=== PATIENT | female | born 1960 | race Caucasian/White ===

== ENCOUNTER 2016-07-09 02:55 | Inpatient (IN) | payer MEDICARE ==
[2016-07-09] MEDS ORDERED: IPRATROPIUM/ALBUTEROL 0.5-2.5 MG/3 ML AMPUL NEB ONE (02:57)
[2016-07-09] MEDS ORDERED: ALBUTEROL SULFATE 0.083% NEB 2.5 MG/3 ML AMPUL NEB ONE (02:57)
[2016-07-09] MEDS ORDERED: NORMAL SALINE 1000 ML 1,000 ML IV PRN (02:57)
--- NOTE | 2016-07-09 03:04 | ER Document Report ---
ED Respiratory Problem - General Stated Complaint: RESPIRATORY DISTRESS Time seen by provider: 02:59 Mode of Arrival: Medic Information source: Emergency Med Personnel - [facility] Patient complains to provider of: COPD, Cough, Short of breath Onset: Just prior to arrival Duration: Worse/persistent Short of Breath: Severe At home treatment: Bronchodilators EMS treatments: Bronchodilators, Solumedrol Notes: Patient is a 56-year-old female presenting to the emergency room via EMS for respiratory distress, she was awakened from her sleep with difficulty breathing and wheezing according to EMS, she tried to use bronchodilators at home with no success, when EMS arrived she was in severe respiratory distress, they attempted to give more bronchodilators, however she became apneic and required intubation feel, in route she received 2 additional bronchodilator treatments, 2 g of magnesium and RSI medications, upon arrival she is intubated with breath sounds bilaterally, diffuse wheezing - Related Data Allergies/Adverse Reactions: peanut Allergy (Verified 07/09/16 03:48) Home Medications: Current Home Medications Albuterol Sulfate [Proair HFA] 1 - 2 puff IH Q4 PRN 07/09/16 [History] Aspirin [Aspirin EC] 81 mg PO DAILY 07/09/16 [History] Atorvastatin Calcium 40 mg PO DAILY 07/09/16 [History] Budesonide/Formoterol Fumarate [Symbicort Hfa 80-4.5 Mcg Inhaler 6.9 gm] 1 puff IH BID 07/09/16 [History] Carvedilol [Coreg] 1 tab PO Q12 07/09/16 [History] Clonidine HCl 0.2 mg PO BID 07/09/16 [History] Clopidogrel Bisulfate [Clopidogrel] 75 mg PO DAILY 07/09/16 [History] Furosemide 20 mg PO DAILY 07/09/16 [History] Isosorbide Mononitrate [Isosorbide Mononitrate ER] 30 mg PO DAILY 07/09/16 [ History] Lisinopril 5 mg PO DAILY 07/09/16 [History] Lorazepam [Ativan 0.5 mg Tablet] 0.5 mg PO Q12 07/09/16 [History] Methadone HCl 5 mg PO BID PRN 07/09/16 [History] Omeprazole 20 mg PO DAILY 07/09/16 [History] Sertraline HCl 50 mg PO DAILY 07/09/16 [History] Past Medical History - General Information source: Emergency Med Personnel - Social History Smoking Status: Unknown if Ever Smoked Family History: Reviewed & Not Pertinent Review of Systems - Review of Systems -: Yes ROS unobtainable due to patient's medical condition Respiratory: See HPI Physical Exam - Vital signs Vitals: Pulse Ox 100 07/09/16 02:55 Interpretation: Normal - General In distress: Severe Notes: Intubated and sedated - Respiratory Respiratory status: Other - Intubated Chest status: Other - Healed midline sternotomy scar Breath sounds: Wheezing Chest palpation: Normal - Cardiovascular Rhythm: Regular Heart sounds: Normal auscultation - Abdominal Inspection: Healed incision - Healed scars in right upper quadrant and midline - Back Back: Normal - Extremities General upper extremity: Normal inspection General lower extremity: Normal inspection - Neurological Notes: Patient is intubated and sedated - Skin Skin Temperature: Warm Skin Moisture: Dry Skin Color: Normal Course - Re-evaluation Re-evalutation: 07/09/16 06:40 Patient was discussed with hospitalist who agrees to admit for further evaluation and treatment - Vital Signs Vital signs: Temp Pulse Resp BP Pulse Ox 98.9 F 14 164/85 H 100 07/09/16 06:20 07/09/16 06:20 07/09/16 06:20 07/09/16 06:20 - Laboratory Result Diagrams: 07/09/16 02:59 07/09/16 02:59 Laboratory results interpreted by me: 07/09/16 07/09/16 07/09/16 02:59 02:59 02:59 WBC 22.8 H Hgb 10.1 L Hct 32.7 L MCH 25.6 L MCHC 30.9 L RDW 16.5 H Seg Neuts % (Manual) 86 H Band Neutrophils % 2 L Lymphocytes % (Manual) 6 L Abs Neuts (Manual) 20.1 H Carbonic Acid ABG pH ABG pCO2 ABG pO2 ABG HCO3 ABG Total CO2 ABG O2 Saturation Sodium 146.5 H Chloride 108 H Glucose 126 H Magnesium 3.0 H Total Protein 6.1 L Albumin 3.1 L Urine Protein Urine Bilirubin Urine Ascorbic Acid 07/09/16 07/09/16 07/09/16 03:15 03:15 04:59 WBC Hgb Hct MCH MCHC RDW Seg Neuts % (Manual) Band Neutrophils % Lymphocytes % (Manual) Abs Neuts (Manual) Carbonic Acid 1.66 H 1.42 H ABG pH 7.30 L 7.34 L ABG pCO2 55.2 H 47.2 H ABG pO2 584.7 H 550.3 H ABG HCO3 26.3 H ABG Total CO2 28.0 H 26.3 H ABG O2 Saturation 99.9 H 99.9 H Sodium Chloride Glucose Magnesium Total Protein Albumin Urine Protein 100 H Urine Bilirubin SMALL H Urine Ascorbic Acid 20 H - Diagnostic Test Radiology reviewed: Image reviewed, Reports reviewed - EKG Interpretation by Me EKG shows normal: Sinus rhythm Rate: Normal Rhythm: NSR - Transfer of Care Care transferred to following provider: Dr. Stuart Critical Care Note - Critical Care Note Total time excluding time spent on procedures (mins): 40 Comments: Patient arrived to the emergency room intubated and sedated, requiring stabilization, vent management, sedation, discussions with family and eventual admission to the ICU Discharge - Discharge Clinical Impression: Respiratory failure requiring intubation COPD (chronic obstructive pulmonary disease) Qualifiers: COPD type: COPD with acute lower respiratory infection Qualified Code(s): J44.0 - Chronic obstructive pulmonary disease with acute lower respiratory infection Pneumonia Qualifiers: Pneumonia type: due to unspecified organism Laterality: right Lung location: upper lobe of lung Qualified Code(s): J18.1 - Lobar pneumonia, unspecified organism Condition: Critical Disposition: ADMITTED INPATIENT Admitting Provider: Hospitalist Unit Admitted: ICU
[2016-07-09] MEDS: PROPOFOL 100 ML IV PRN ×5 (03:07→19:55)
[2016-07-09 03:27] LABS: ALBUMIN 3.1 g/dL (3.5-5.0); ANION GAP 10 (5-19); ASPARTATE AMINO TRANSFERASE 19 U/L (14-36); BLOOD UREA NITROGEN 15 mg/dL (7-20); CALCIUM 8.5 mg/dL (8.4-10.2); CARBON DIOXIDE 29 mmol/L (22-30); CHLORIDE 108 mmol/L (98-107); CREATININE RESULT 0.69 mg/dL (0.52-1.25); GLUCOSE 126 mg/dL (75-110); POTASSIUM 4.6 mmol/L (3.6-5.0); SODIUM 146.5 mmol/L (137-145)
[2016-07-09 03:28] LABS: ALANINE AMINOTRANSFERASE 27 U/L (9-52); ALKALINE PHOSPHATASE 88 U/L (38-126); BILIRUBIN,TOTAL 0.4 mg/dL (0.2-1.3); CREATINE KINASE 40 U/L (30-135); TOTAL PROTEIN 6.1 g/dL (6.3-8.2)
[2016-07-09 03:34] LABS: ARTERIAL BLOOD BASE EXCESS -0.9 mmol/L; ARTERIAL BLOOD O2 SATURATION 99.9 % (94-98)
[2016-07-09 03:39] LABS: CREATINE KINASE MB 2.32 ng/mL (<4.55)
[2016-07-09 03:50] LABS: APPEARANCE,URINE SLIGHTLY-CLOUDY; BILIRUBIN,URINE SMALL (NEGATIVE); GLUCOSE, URINE NEGATIVE (NEGATIVE); KETONES,URINE NEGATIVE (NEGATIVE); LEUKOCYTE ESTERASE,URINE NEGATIVE (NEGATIVE); NITRITE,URINE NEGATIVE (NEGATIVE); PROTEIN,URINE 100 mg/dL (NEGATIVE); URINE SPECIFIC GRAVITY 1.028; UROBILINOGEN,URINE NEGATIVE mg/dL (<2.0)
[2016-07-09 03:54] LABS: TROPONIN I < 0.012 ng/mL
[2016-07-09 04:32] LABS: HEMATOCRIT 32.7 % (36.0-47.0); HEMOGLOBIN 10.1 g/dL (12.0-15.5); HGB HCT DIFFERENCE -2.4; MEAN CORPUSCULAR HEMOGLOBIN 25.6 pg (27.0-33.4); MEAN CORPUSCULAR HGB CONC 30.9 g/dL (32.0-36.0); MEAN CORPUSCULAR VOLUME 83 fl (80-97); RED BLOOD COUNT 3.94 10^6/uL (3.72-5.28); RED CELL DISTRIBUTION WIDTH 16.5 % (11.5-14.0); WHITE BLOOD COUNT 22.8 10^3/uL (4.0-10.5)
[2016-07-09] MEDS ORDERED: AZITHROMYCIN INJ 500 MG VIAL IV ONE (04:34)
[2016-07-09] MEDS ORDERED: CEFTRIAXONE RTU 1 GM/D5W 50 ML IV ONE (04:34)
[2016-07-09 04:36] LABS: BAND NEUTROPHILS % (MANUAL) 2 % (3-5); BASOPHILS % (MANUAL) 0 % (0-2); EOSINOPHILS % (MANUAL) 0 % (0-6); LYMPHOCYTES % (MANUAL) 6 % (13-45); TOTAL CELLS COUNTED 100
[2016-07-09 04:40] LABS: OVALOCYTES 1+; POIKILOCYTOSIS 1+; RBC MORPHOLOGY COMMENT NORMO-CYTIC/CHROMIC
[2016-07-09 05:32] LABS: ADD ON TESTING BLD IN LAB ACKNOWLEDGE
[2016-07-09 05:38] LABS: ARTERIAL BLOOD BASE EXCESS -1.3 mmol/L; ARTERIAL BLOOD O2 SATURATION 99.9 % (94-98)
[2016-07-09] MEDS ORDERED: ALBUTEROL SULFATE 0.083% NEB 2.5 MG/3 ML AMPUL NEB PRN (07:43)
[2016-07-09] MEDS ORDERED: ACETAMINOPHEN 650 MG SUPP.RECT PR PRN (07:52)
--- NOTE | 2016-07-09 07:59 | EKG REPORT ---
SEVERITY:- ABNORMAL ECG - SINUS RHYTHM BIATRIAL ABNORMALITIES : Confirmed by: Helio Ngo MD 09-Jul-2016 07:59:10
[2016-07-09] MEDS ORDERED: METHADONE HCL NG PRN (08:01)
[2016-07-09] MEDS ORDERED: GLUCAGON,HUMAN RECOMB 1 MG INJ IM PRN (08:31)
[2016-07-09] MEDS ORDERED: DEXTROSE 40% GEL 15 GM TUBE PO PRN ×2 (08:31)
[2016-07-09] MEDS ORDERED: DEXTROSE 50%-WATER 25 GM/50 ML DISP.SYRIN IV PRN ×2 (08:31)
[2016-07-09] MEDS ORDERED: NICOTINE 7 MG/24 HR PATCH.TD24 TD PRN (08:33)
--- NOTE | 2016-07-09 08:33 | PDOC H&P ---
History of Present Illness Admission Date/PCP: 07/09/16 05:12 [place], [place] Patient complains of: difficulty breathing History of Present Illness: CHARITY RAYMOND is a 56 year old female with underlying 24/7 2 L per nasal cannula home O2 dependent COPD, ongoing tobacco use, 1/2-1 pack of cigarettes per day, along with underlying coronary artery disease, having suffered 3-4 myocardial infarctions,, last episode November of last year, with heart catheterization at that time revealing no further intervention necessary, status post previous coronary arterial bypass graft, along with hyperlipidemia, who presents to the emergency room via EMS for evaluation and treatment of above complaint. Patient has been discussed with emergency room physician who evaluated the patient. Patient is intubated and sedated and is able to provide no history whatsoever in terms of acute or chronic events, review of systems, personal habits, family history, etc. Sister, who is patient's surrogate health care power of defense attorney, is present and is quite informative and helpful no old records available for review.. Sister states the patient is "sick all the time." Was last on antibiotics 2 weeks ago for respiratory tract infection. Uncertain exactly which medication. Has not been hospitalized in the last 3 months, but has gone to the emergency room more than one time during that time span.. No specific sick contacts. Up- to-date on flu and probably pneumonia vaccinations. No prior intubation. Early evening of the seventh, patient began having increasing respiratory distress and per her her usual routine, she took half milligram Ativan at that time. She suddenly awoke in the sales representative graphic art hours of admission in significant respiratory distress with wheezing. EMS arrived approximately 1:30 AM after patient called. Bronchodilators had been tried at home with no success. EMS tried more bronchodilators, but patient became apneic and required intubation in the field. Laboratory results are listed in [facility] and are reviewed. No old labs available for comparison. X-ray summary results are listed below, with full report(s) reviewed. . EKG reviewed. No prior EKG available for comparison. 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 Tobacco use as noted above. No alcohol or illicit drug use. Allergies/adverse reactions are listed in [facility] and are reviewed. Home medications are reviewed bottle review and discussion with sister and have been reconciled by nursing staff in [facility]. [facility] may not accurately reflect patient's true medications, dosages, and/or frequencies. Compliant with medications. No recent medication changes. REVIEW OF SYSTEMS: See history and present illness.No further information available this point in time. PHYSICAL EXAMINATION: 5 feet tall. 38.5 kg. BMI 16.6 kg/m. Blood pressure 168/85. Pulse 89 and regular. 100% saturation on SIMV volume control 65% FiO2 PEEP of 5 pressure support 10 rate of 14 tidal volume 500. Tidal volume is decreased. Quite frail thin chronically ill-appearing female who appears a fair number of years older than her stated age. Intubated and sedated. Does not respond to voice or basic requests. Female emergency room nursing executive Lindsay is present. Skin is warm and dry. No grossly obvious evidence of rash in areas of skin examined. No subcutaneous nodules palpated. ENT: Hearing can't be adequately evaluated due to her current status. Exam slightly limited by endotracheal tube with attaching straps. No Lee sign. Eyes: No scleral icterus. Pupils equal and reactive to light at 7 mm. [place] conjunctivae. No raccoon eyes. Neck is nontender to gentle palpation . Midline trachea. No palpable thyroid nodule mass enlargement or tenderness. Lymphatic: No palpable cervical or clavicular nodes. Psychiatric: Can't be adequately evaluated due to her current status. Lungs: Auscultation reveals equal breath sounds bilaterally. No use of accessory respiratory muscles. Not breathing over ventilator. Brief early expiratory wheezing bilaterally. Cardiovascular: Heart regular rate and rhythm, without gallop murmur or rub. No carotid or abdominal aortic bruits. No ankle or pedal edema. Faintly palpable dorsalis pedis pulses. Abdomen: soft, , nontender with positive bowel sounds. No upper abdominal mass or organomegaly is palpated.. Extremities: Feet are warm and dry. No calf tenderness to compression. No grossly obvious visual evidence of calf swelling. Gentle manipulation of lower extremities fails to reveal any obvious evidence of injury or instability to knees hips or ankles. Neurologic: Patellar reflexes absent. Absent Babinski. Light touch can't be evaluated due to her current status. Does not follow requests for hand bundle packer. Past Medical History Cardiac Medical History: Reports: Congestive Heart Failure - Uncertain if systolic and/or diastolic., Coronary Artery Disease, Myocardial Infarction, Hyperlipidema, Hypertension Denies: DVT, Pulmonary Embolism Pulmonary Medical History: Reports: Chronic Obstructive Pulmonary Disease (COPD) EENT Medical History: Reports: Eyes - Reading glasses Denies: Ears, Throat Neurological Medical History: Denies: Hemorrhagic CVA, Ischemic CVA, Seizures Endocrine Medical History: Denies: Diabetes Mellitus Type 1, Diabetes Mellitus Type 2, Hyperthyroidism, Hypothyroidism Renal/ Medical History: Reports: None GI Medical History: Reports: Gastroesophageal Reflux Disease Denies: Cirrhosis, Hepatitis, Peptic Ulcer Disease Musculoskeltal Medical History: Reports: Arthritis Skin Medical History: Reports: None Denies: Eczema, Psoriasis Psychiatric Medical History: Reports: Depression, General Anxiety Disorder, Tobacco Dependency Hematology: Reports: Other - Easy bruising. Infectious Medical History: Denies: Hepatitis B, Hepatitis C Past Surgical History Past Surgical History: Reports: Section - 2, Cholecystectomy, Coronary Artery Bypass Graft, Hysterectomy Social History Information Source: Relative, Emergency Med Personnel, [facility] Records Smoking Status: Current Every Day Smoker Frequency of Alcohol Use: None Drugs: None - Advance Directive Resuscitation Status: Full Code Surrogate healthcare decision maker:: Sister Family History Family History: Reviewed & Not Pertinent Parental Family History Reviewed: Yes Children Family History Reviewed: Yes Sibling(s) Family History Reviewed.: Yes Medication/Allergy Home Medications: Albuterol Sulfate [Proair HFA] 2 puff IH Q4HP PRN 07/09/16 Budesonide/Formoterol Fumarate [Symbicort HFA 160-4.5 mcg Inhaler 6 gm] 2 puff IH BID 07/09/16 Fluticasone Propionate [Flonase Nasal [place] 50 Mcg/[place] 16 gm] 1 spray NASL DAILY 07/09/16 Isosorbide Mononitrate [Isosorbide Mononitrate ER] 30 mg PO DAILY 07/09/16 RX: Atorvastatin Calcium [Lipitor 40 mg Tablet] 40 mg PO WSUPPER 07/09/16 RX: Carvedilol [Coreg 6.25 mg Tablet] 6.25 mg PO Q12 07/09/16 RX: Clonidine HCl [Catapres 0.2 mg Tablet] 0.2 mg PO Q12 07/09/16 RX: Clopidogrel Bisulfate [Plavix 75 mg Tablet] 75 mg PO DAILY 07/09/16 RX: Ipratropium/Albuterol Sulfate [Iprat-Albut 0.5-3(2.5) mg/3 ml] 3 ml NEB Q6HP PRN 07/09/16 RX: Lisinopril [Prinivil 5 mg Tablet] 5 mg PO Q12 07/09/16 RX: Lorazepam [Ativan 0.5 mg Tablet] 0.5 mg PO BIDP PRN 07/09/16 RX: Megestrol Acetate [Megace] 15.6 ml PO DAILY 07/09/16 RX: Methadone HCl 5 mg PO BIDP PRN 07/09/16 RX: Nitroglycerin [Nitrostat] 0.4 mg SL Q5MP PRN 07/09/16 RX: Omeprazole 20 mg PO DAILY 07/09/16 RX: Sertraline HCl [Zoloft 50 mg Tablet] 50 mg PO DAILY 07/09/16 Tiotropium [place] [Spiriva Handihaler 5 Cap/Kit (18 Mcg/Cap)] 1 puff IH DAILY 07/09/16 Allergies/Adverse Reactions: escitalopram [From Lexapro] Allergy (Verified 07/09/16 08:00) hydralazine Allergy (Verified 07/09/16 07:58) Physical Exam Vital Signs: Temp Pulse Resp BP Pulse Ox 98.9 F 14 164/85 H 100 07/09/16 06:20 07/09/16 06:20 07/09/16 06:20 07/09/16 06:20 Results Impressions: KUB X-Ray 07/09/16 00:00 IMPRESSION: NASOGASTRIC TUBE DESCRIBED. FURTHER ADVANCEMENT MAY BE NECESSARY. NO RADIOGRAPHIC EVIDENCE FOR ACUTE ABDOMINAL DISEASE. Chest X-Ray 07/09/16 02:57 IMPRESSION: SATISFACTORY PLACEMENT OF ENDOTRACHEAL TUBE. SUBTLE NODULAR OPACITY RIGHT UPPER LOBE MAY REPRESENT DEVELOPING PNEUMONIA. RECOMMEND FOLLOWUP RADIOGRAPHS 4 TO 6 WEEKS AND IF PERSISTS WOULD RECOMMEND CT EXAMINATION. Assessment & Plan - Diagnosis (1) Acute on chronic respiratory failure with hypoxia and hypercapnia Is this a current diagnosis for this admission?: YesPlan: Patient will be admitted under COPD exacerbation protocol. Incentive spirometry twice a day. Scheduled DuoNeb's. PRN albuterol nebs Solu-Medrol IV Pepcid for gastritis prophylaxis. Pulmonology consult. Antibiotics will consist of Zosyn along with intravenous Levaquin.. Patient is a full code. Knee high SCDs for DVT prophylaxis, along with subcutaneous heparin. Impression and plans were discussed with sister, who concurs. Time spent in evaluation and management of patient: 75 minutes. (2) COPD exacerbation Is this a current diagnosis for this admission?: Yes (3) Hypernatremia Is this a current diagnosis for this admission?: YesPlan: Appropriate IV fluid. Follow-up chemistry. (4) Respiratory failure requiring intubation Is this a current diagnosis for this admission?: Yes (5) Nodule of right lung Is this a current diagnosis for this admission?: YesPlan: Outpatient follow-up. (6) CAD (coronary artery disease), [place] coronary artery Qualifiers: [place] vs. transplanted heart: [place] heart Associated angina: without angina Qualified Code(s): I25.10 - Atherosclerotic heart disease of [place] coronary artery without angina pectoris Is this a current diagnosis for this admission?: YesPlan: Resume home medications as appropriate once these have been reviewed. (7) Dependence on continuous supplemental oxygen Is this a current diagnosis for this admission?: Yes (8) Tobacco dependency Is this a current diagnosis for this admission?: YesPlan: . When necessary Nicotine patch. - Inpatient Certification Based on my medical assessment, after consideration of the patient's comorbidities, presenting symptoms, or acuity I expect that the services needed warrant INPATIENT care.: Yes I certify that my determination is in accordance with my understanding of Medicare's requirements for reasonable and necessary INPATIENT services [42 CFR 412.3e].: Yes Medical Necessity: Need Close Monitoring Due to Risk of Patient Decompensation, Need For IV Fluids, Need For Continuous Telemetry Monitoring, Need for Nebulizer Therapy and Monitoring of Response, Need for IV Antibiotics, Risk of Diagnosis Which Will Require Inpatient Eval/Care/Monitoring Post Hospital Care: D/C or Transfer Summary
[2016-07-09] MEDS: IPRATROPIUM/ALBUTEROL 0.5-2.5 MG/3 ML AMPUL NEB SCH ×3 (08:46→19:45)
[2016-07-09] MEDS: PIPERACILLIN SODIUM/TAZOBACTAM 4.5 GM in NORMAL SALINE 100 ML IV SCH ×3 (09:51→21:29)
[2016-07-09] MEDS ORDERED: BUDESONIDE/FORMOTEROL 80-4.5 MCG 60 PUFF/6.9 GM MDI IH SCH (10:00)
[2016-07-09] MEDS: 1/2 NORMAL SALINE 1,000 ML IV PRN ×2 (10:04→21:31)
[2016-07-09] MEDS: LISINOPRIL 10 MG TABLET NG SCH (10:38)
[2016-07-09] MEDS: CLONIDINE HCL 0.2 MG TABLET NG SCH ×2 (10:40→21:28)
[2016-07-09] MEDS: FUROSEMIDE INJ/PF 20 MG/2 ML SDV IV SCH (10:40)
[2016-07-09] MEDS: CLOPIDOGREL BISULFATE 75 MG TABLET NG SCH (10:40)
[2016-07-09] MEDS: CARVEDILOL 6.25 MG TABLET NG SCH ×2 (10:40→21:29)
[2016-07-09] MEDS: FAMOTIDINE INJ/PF 20 MG/2 ML SDV IV SCH ×2 (10:41→21:29)
[2016-07-09] MEDS: HEPARIN SOD (PORCINE) 5,000 UNIT/ML 1 ML SYRINGE SUBCUT SCH ×2 (10:41→21:29)
[2016-07-09] MEDS: SERTRALINE HCL 50 MG TABLET NG SCH (10:41)
[2016-07-09] MEDS: ASPIRIN 300 MG SUPP, RECTAL PR SCH (10:41)
[2016-07-09] MEDS: LEVOFLOXACIN 750 MG/D5W RTU 150 ML IV SCH (10:42)
[2016-07-09] MEDS: METHYLPREDNISOLONE INJ 40 MG/1 ML SDV IV SCH ×2 (10:49→18:49)
[2016-07-09] MEDS: NITROGLYCERIN 2% OINTMENT 1 GM PACKET TP SCH ×2 (14:30→18:49)
--- NOTE | 2016-07-09 15:04 | PDOC PROGRESS REPORT ---
Subjective Progress Note for:: 07/09/16 Subjective:: Per H&P: "CHARITY RAYMOND is a 56 year old female with underlying 24 /7 2 L per nasal cannula home O2 dependent COPD, ongoing tobacco use, 1/2-1 pack of cigarettes per day, along with underlying coronary artery disease, having suffered 3-4 myocardial infarctions,, last episode November of last year, with heart catheterization at that time revealing no further intervention necessary, status post previous coronary arterial bypass graft, along with hyperlipidemia, who presents to the emergency room via EMS for evaluation and treatment of above complaint. Patient has been discussed with emergency room physician who evaluated the patient. Patient is intubated and sedated and is able to provide no history whatsoever in terms of acute or chronic events, review of systems, personal habits, family history, etc. Sister, who is patient 's surrogate health care power of attorney law clerk, is present and is quite informative and helpful no old records available for review.. Sister states the patient is "sick all the time." Was last on antibiotics 2 weeks ago for respiratory tract infection. Uncertain exactly which medication. Has not been hospitalized in the last 3 months, but has gone to the emergency room more than one time during that time span.. No specific sick contacts. Up-to-date on flu and probably pneumonia vaccinations. No prior intubation. Early evening of the , patient began having increasing respiratory distress and per her her usual routine, she took half milligram Ativan at that time. She suddenly awoke in the presales engineer hours of admission in significant respiratory distress with wheezing. EMS arrived approximately 1:30 AM after patient called. Bronchodilators had been tried at home with no success. EMS tried more bronchodilators, but patient became apneic and required intubation in the field. " Patient remains intubated on mechanical ventilation and seems to be resting comfortably, but sedated and unable to participate in her exam. Sister reports that she's been sick for 4-6 weeks, has been off and on 2 separate courses of antibiotics and oral steroids, each time with at least minimal improvement but shortly after stopping the medication she would decline. She also reports continued smoking of at least a half pack per day. ROS: Unable to obtain due to sedation. Physical Exam Vital Signs: Temp Pulse Resp BP Pulse Ox 95.9 F L 64 16 119/74 98 07/09/16 14:40 07/09/16 14:15 07/09/16 14:40 07/09/16 14:40 07/09/16 14:40 EXAM GENERAL: NAD; thin with muscle wasting; no obese; sedated, unarousable HEENT: normocephalic, atraumatic; no conjunctival injection, no scleral icterus ; oral mucosa moist; ETT in good position with fog in the tube RESPIRATORY: no accessory muscle use, no increased WOB, no attempt to breathe over the vent, good air entry bilaterally with diminished breath sounds bilaterally; no wheezes, rales, rhonchi; no inspiratory crackles CARDIO: no JVD; RRR; no systolic murmur; no tachycardia GI: soft; thin; normal bowel sounds; no hepato spleno megaly; no rebound, rigidity, guarding; no grimace on palpation. VASCULAR: no carotid bruit; no abdominal bruit; no pallor; 2+ radial, DP pulse ; normal capillary refill EXTREMITIES: no calf tender; no palpable cords in calf; no clubbing, cyanosis , pedal edema PSYCH: Sedated SKIN: warm; moist; no petechiae; no telengectasias; no jaundice; no rash Results Laboratory Results: Labs reviewed: Marked leukocytosis, 86% segs, H&H 10 and 33; ABG shows hypoxia with mild CO2 retention but no acidosis; chemistries largely unremarkable. Impressions: KUB X-Ray 07/09/16 00:00 IMPRESSION: NASOGASTRIC TUBE DESCRIBED. FURTHER ADVANCEMENT MAY BE NECESSARY. NO RADIOGRAPHIC EVIDENCE FOR ACUTE ABDOMINAL DISEASE. Chest X-Ray 07/09/16 02:57 IMPRESSION: SATISFACTORY PLACEMENT OF ENDOTRACHEAL TUBE. SUBTLE NODULAR OPACITY RIGHT UPPER LOBE MAY REPRESENT DEVELOPING PNEUMONIA. RECOMMEND FOLLOWUP RADIOGRAPHS 4 TO 6 WEEKS AND IF PERSISTS WOULD RECOMMEND CT EXAMINATION. Status: Image reviewed by me - Chest x-ray is reviewed by me and I agree with the right upper lobe infiltrate seen by radiology Assessment & Plan - Diagnosis (1) Pneumonia Qualifiers: Pneumonia type: due to unspecified organism Laterality: right Lung location: upper lobe of lung Qualified Code(s): J18.1 - Lobar pneumonia, unspecified organism Is this a current diagnosis for this admission?: YesPlan: Continue broad-spectrum antibiotics, given her fixed lung disease and is at risk for gram-negative organisms. Also failed two outpatient antibiotic regimens. (2) Sepsis Qualifiers: Sepsis type: sepsis due to unspecified organism Qualified Code(s): A41.9 - Sepsis, unspecified organism Is this a current diagnosis for this admission?: YesPlan: Evidenced by tachypnea, leukocytosis and a known source with end organ damage involving respiratory failure and encephalopathy (3) Acute on chronic respiratory failure with hypoxia and hypercapnia Is this a current diagnosis for this admission?: YesPlan: Chronic home O2 at 2 L, now requiring significantly more supplemental O2 with associated CO2 retention. Continue mechanical ventilation, daily weaning trial during sedation vacation. If we can get her FiO2 requirement down around 40-50 % she could likely extubate. (4) Anemia Qualifiers: Anemia type: unspecified type Qualified Code(s): D64.9 - Anemia, unspecified Is this a current diagnosis for this admission?: YesPlan: Likely of chronic disease, no evidence for acute blood loss. Monitor H&H (5) COPD exacerbation Is this a current diagnosis for this admission?: YesPlan: As above, continue systemic steroids and nebulizers. (6) Hypernatremia Is this a current diagnosis for this admission?: YesPlan: Mild and likely due to decreased oral intake, continue IV fluids and monitor. (7) Tobacco dependency Is this a current diagnosis for this admission?: YesPlan: Tobacco cessation counseling when able. (8) Protein-calorie malnutrition, moderate Is this a current diagnosis for this admission?: YesPlan: This will certainly complicate her recovery and she has little in the way of nutritional reserve - Time Time Spent with patient: 35 or more minutes Anticipated discharge: Home with Homehealth Within: within 72 hours
[2016-07-09] MEDS: ATORVASTATIN CALCIUM 40 MG TABLET NG SCH (21:28)
[2016-07-10] MEDS: NITROGLYCERIN 2% OINTMENT 1 GM PACKET TP SCH ×3 (00:08→11:45)
[2016-07-10] MEDS: PROPOFOL 100 ML IV PRN ×5 (00:33→20:19)
[2016-07-10] MEDS: IPRATROPIUM/ALBUTEROL 0.5-2.5 MG/3 ML AMPUL NEB SCH ×4 (02:06→19:50)
[2016-07-10] MEDS: PIPERACILLIN SODIUM/TAZOBACTAM 4.5 GM in NORMAL SALINE 100 ML IV SCH ×4 (02:28→20:18)
[2016-07-10] MEDS: METHYLPREDNISOLONE INJ 40 MG/1 ML SDV IV SCH ×3 (02:29→17:34)
[2016-07-10 04:54] LABS: HEMATOCRIT 29.6 % (36.0-47.0); HEMOGLOBIN 9.4 g/dL (12.0-15.5); HGB HCT DIFFERENCE -1.4; MEAN CORPUSCULAR HEMOGLOBIN 25.9 pg (27.0-33.4); MEAN CORPUSCULAR HGB CONC 31.9 g/dL (32.0-36.0); MEAN CORPUSCULAR VOLUME 81 fl (80-97); RED BLOOD COUNT 3.64 10^6/uL (3.72-5.28); RED CELL DISTRIBUTION WIDTH 16.4 % (11.5-14.0); WHITE BLOOD COUNT 15.3 10^3/uL (4.0-10.5)
[2016-07-10 05:08] LABS: ANION GAP 10 (5-19); BLOOD UREA NITROGEN 12 mg/dL (7-20); CALCIUM 8.9 mg/dL (8.4-10.2); CARBON DIOXIDE 25 mmol/L (22-30); CHLORIDE 108 mmol/L (98-107); CREATININE RESULT 0.65 mg/dL (0.52-1.25); GLUCOSE 100 mg/dL (75-110); POTASSIUM 3.6 mmol/L (3.6-5.0); SODIUM 142.8 mmol/L (137-145); TRIGLYCERIDES 125 mg/dL (<150)
[2016-07-10 05:15] LABS: BASOPHILS % (MANUAL) 0 % (0-2); EOSINOPHILS % (MANUAL) 0 % (0-6); LYMPHOCYTES % (MANUAL) 3 % (13-45); TOTAL CELLS COUNTED 100
[2016-07-10 05:17] LABS: ANISOCYTOSIS 1+; HYPOCHROMASIA SLIGHT; OVALOCYTES SLIGHT; POLYCHROMASIA SLIGHT; TEAR DROP CELLS SLIGHT; TOXIC GRANULATION SLIGHT
[2016-07-10 06:07] LABS: ARTERIAL BLOOD O2 SATURATION 94.9 % (94-98)
[2016-07-10] MEDS: 1/2 NORMAL SALINE 1,000 ML IV PRN ×2 (09:05→21:27)
[2016-07-10] MEDS: LEVOFLOXACIN 750 MG/D5W RTU 150 ML IV SCH (09:30)
[2016-07-10] MEDS: ASPIRIN 300 MG SUPP, RECTAL PR SCH (09:31)
[2016-07-10] MEDS: FAMOTIDINE INJ/PF 20 MG/2 ML SDV IV SCH ×2 (09:31→21:26)
[2016-07-10] MEDS: SERTRALINE HCL 50 MG TABLET NG SCH (09:31)
[2016-07-10] MEDS: CARVEDILOL 6.25 MG TABLET NG SCH ×2 (09:31→21:26)
[2016-07-10] MEDS: FUROSEMIDE INJ/PF 20 MG/2 ML SDV IV SCH (09:31)
[2016-07-10] MEDS: CLOPIDOGREL BISULFATE 75 MG TABLET NG SCH (09:31)
[2016-07-10] MEDS: LISINOPRIL 10 MG TABLET NG SCH (09:32)
[2016-07-10] MEDS: HEPARIN SOD (PORCINE) 5,000 UNIT/ML 1 ML SYRINGE SUBCUT SCH ×2 (09:32→21:28)
[2016-07-10] MEDS: CLONIDINE HCL 0.2 MG TABLET NG SCH ×2 (09:32→21:27)
--- NOTE | 2016-07-10 15:44 | PDOC PROGRESS REPORT ---
Subjective Progress Note for:: 07/10/16 Subjective:: Per H&P: "CHARITY RAYMOND is a 56 year old female with underlying 24 /7 2 L per nasal cannula home O2 dependent COPD, ongoing tobacco use, 1/2-1 pack of cigarettes per day, along with underlying coronary artery disease, having suffered 3-4 myocardial infarctions,, last episode November of last year, with heart catheterization at that time revealing no further intervention necessary, status post previous coronary arterial bypass graft, along with hyperlipidemia, who presents to the emergency room via EMS for evaluation and treatment of above complaint. Patient has been discussed with emergency room physician who evaluated the patient. Patient is intubated and sedated and is able to provide no history whatsoever in terms of acute or chronic events, review of systems, personal habits, family history, etc. Sister, who is patient 's surrogate health care power of stain wiper, is present and is quite informative and helpful no old records available for review.. Sister states the patient is "sick all the time." Was last on antibiotics 2 weeks ago for respiratory tract infection. Uncertain exactly which medication. Has not been hospitalized in the last 3 months, but has gone to the emergency room more than one time during that time span.. No specific sick contacts. Up-to-date on flu and probably pneumonia vaccinations. No prior intubation. Early evening of the , patient began having increasing respiratory distress and per her her usual routine, she took half milligram Ativan at that time. She suddenly awoke in the vessel [place] hours of admission in significant respiratory distress with wheezing. EMS arrived approximately 1:30 AM after patient called. Bronchodilators had been tried at home with no success. EMS tried more bronchodilators, but patient became apneic and required intubation in the field. " Patient remains intubated on mechanical ventilation and seems to be resting comfortably, but sedated and unable to participate in her exam. Sister reports that she's been sick for 4-6 weeks, has been off and on 2 separate courses of antibiotics and oral steroids, each time with at least minimal improvement but shortly after stopping the medication she would decline. She also reports continued smoking of at least a half pack per day. Reason for visit: Follow-up pneumonia, acute hypoxic respiratory failure Subjective: Patient remains intubated and seems to tolerate mechanical ventilation but is intolerant of weaning trial this morning. She remains on a propofol at 70 g and is still arousable and becomes agitated during her breathing trial, even while still on 50 g. Nursing reports no new events otherwise. Patient remains to sedated and/or agitated to participate in her exam and review of systems. ROS: Unobtainable for reasons noted above. Physical Exam Vital Signs: Temp Pulse Resp BP Pulse Ox 97.8 F 73 23 H 145/79 H 99 07/10/16 12:00 07/10/16 14:42 07/10/16 15:01 07/10/16 15:01 07/10/16 15:01 Intake & Output 07/09/16 07/10/16 07/11/16 06:59 06:59 06:59 Intake Total 1458 Output Total 2280 2450 Balance -2280 -992 Weight 37 kg EXAM GENERAL: NAD; thin with muscle wasting; no obese; sedated, unarousable HEENT: normocephalic, atraumatic; no conjunctival injection, no scleral icterus ; oral mucosa moist; ETT in good position with fog in the tube RESPIRATORY: no accessory muscle use, increased WOB during weaning trial unless tolerating the vent without difficulty, good air entry bilaterally with diminished course breath sounds bilaterally; no wheezes, rales, rhonchi; minimal bilateral inspiratory crackles CARDIO: no JVD; RRR; no systolic murmur; no tachycardia GI: soft; thin; normal bowel sounds; no hepato spleno megaly; no rebound, rigidity, guarding; no grimace on palpation. VASCULAR: no carotid bruit; no abdominal bruit; no pallor; 2+ radial, DP pulse ; normal capillary refill EXTREMITIES: no palpable cords in calf; no clubbing, cyanosis, pedal edema PSYCH: Sedated SKIN: warm; moist; no petechiae; no telengectasias; no jaundice; no rash Results Laboratory Results: 07/10/16 03:44 07/10/16 03:44 07/10/16 07/10/16 07/10/16 03:44 03:44 05:35 WBC 15.3 H RBC 3.64 L Hgb 9.4 L Hct 29.6 L MCV 81 MCH 25.9 L MCHC 31.9 L RDW 16.4 H Plt Count 219 Seg Neutrophils % Not Reportable Lymphocytes % Not Reportable Monocytes % Not Reportable Eosinophils % Not Reportable Basophils % Not Reportable Absolute Neutrophils Not Reportable Absolute Lymphocytes Not Reportable Absolute Monocytes Not Reportable Absolute Eosinophils Not Reportable Absolute Basophils Not Reportable Carbonic Acid 1.26 HCO3/H2CO3 Ratio 20:1 ABG pH 7.41 ABG pCO2 42.0 ABG pO2 73.8 L ABG HCO3 25.8 ABG O2 Saturation 94.9 ABG Base Excess 1.0 FiO2 30% Sodium 142.8 Potassium 3.6 Chloride 108 H Carbon Dioxide 25 Anion Gap 10 BUN 12 Creatinine 0.65 Est GFR ( Amer) > 60 Est GFR (Non-Af Amer) > 60 Glucose 100 Calcium 8.9 Triglycerides 125 Labs reviewed. Arterial blood gas stable, WBC is trending down, electrolytes stable Impressions: KUB X-Ray 07/09/16 00:00 IMPRESSION: NASOGASTRIC TUBE DESCRIBED. FURTHER ADVANCEMENT MAY BE NECESSARY. NO RADIOGRAPHIC EVIDENCE FOR ACUTE ABDOMINAL DISEASE. Chest X-Ray 07/10/16 06:00 IMPRESSION: COPD. FAINT DENSITY IN THE RIGHT UPPER LOBE UNCHANGED. Status: Imported from PACS - Report reviewed Assessment & Plan - Diagnosis (1) Pneumonia Qualifiers: Pneumonia type: due to unspecified organism Laterality: right Lung location: upper lobe of lung Qualified Code(s): J18.1 - Lobar pneumonia, unspecified organism Is this a current diagnosis for this admission?: YesPlan: Continue broad-spectrum antibiotics and add Diflucan based on the sputum culture results. given her fixed lung disease and is at risk for gram-negative organisms. Also failed two outpatient antibiotic regimens. (2) Sepsis Qualifiers: Sepsis type: sepsis due to unspecified organism Qualified Code(s): A41.9 - Sepsis, unspecified organism Is this a current diagnosis for this admission?: YesPlan: Evidenced by tachypnea, leukocytosis and a known source with end organ damage involving respiratory failure and encephalopathy (3) Acute on chronic respiratory failure with hypoxia and hypercapnia Is this a current diagnosis for this admission?: YesPlan: Chronic home O2 at 2 L, now requiring significantly more supplemental O2 with associated CO2 retention. Continue mechanical ventilation, daily weaning trial during sedation vacation. If we can get her FiO2 requirement down around 40-50 % she could likely extubate. Failed her weaning trial this morning, trying in the morning. (4) Anemia Qualifiers: Anemia type: unspecified type Qualified Code(s): D64.9 - Anemia, unspecified Is this a current diagnosis for this admission?: YesPlan: Stable. Likely of chronic disease, no evidence for acute blood loss. Monitor H &H (5) COPD exacerbation Is this a current diagnosis for this admission?: YesPlan: As above, continue systemic steroids and nebulizers. (6) Hypernatremia Is this a current diagnosis for this admission?: YesPlan: Resolved. Mild and likely due to decreased oral intake, continue IV fluids and monitor. (7) Tobacco dependency Is this a current diagnosis for this admission?: YesPlan: Tobacco cessation counseling when able. (8) Protein-calorie malnutrition, moderate Is this a current diagnosis for this admission?: YesPlan: This will certainly complicate her recovery and she has little in the way of nutritional reserve - Time Time Spent with patient: 25-34 minutes - Plan Summary Plan Summary: Continue care in the ICU as outlined above.
[2016-07-10] MEDS ORDERED: LORAZEPAM INJ 2 MG/1 ML VIAL IV PRN (15:49)
[2016-07-10] MEDS: FLUCONAZOLE 200 MG/NS RTU 100 ML IV SCH (17:32)
[2016-07-10] MEDS: FENTANYL 25 MCG/HR PATCH.TD72 TD SCH (17:32)
[2016-07-10] MEDS: LORAZEPAM INJ 2 MG/1 ML VIAL IV SCH (17:34)
[2016-07-10 19:18] LABS: ARTERIAL BLOOD BASE EXCESS 3.9 mmol/L
[2016-07-10] MEDS: ATORVASTATIN CALCIUM 40 MG TABLET NG SCH (21:26)
[2016-07-11] MEDS: IPRATROPIUM/ALBUTEROL 0.5-2.5 MG/3 ML AMPUL NEB SCH ×4 (01:21→20:07)
[2016-07-11] MEDS: METHYLPREDNISOLONE INJ 40 MG/1 ML SDV IV SCH ×3 (02:26→17:56)
[2016-07-11] MEDS: PIPERACILLIN SODIUM/TAZOBACTAM 4.5 GM in NORMAL SALINE 100 ML IV SCH ×4 (02:27→20:34)
[2016-07-11] MEDS: PROPOFOL 100 ML IV PRN ×3 (04:14→17:58)
[2016-07-11 04:16] LABS: HEMATOCRIT 26.7 % (36.0-47.0); HEMOGLOBIN 8.7 g/dL (12.0-15.5); HGB HCT DIFFERENCE -0.6; MEAN CORPUSCULAR HEMOGLOBIN 26.2 pg (27.0-33.4); MEAN CORPUSCULAR HGB CONC 32.5 g/dL (32.0-36.0); MEAN CORPUSCULAR VOLUME 81 fl (80-97); RED BLOOD COUNT 3.31 10^6/uL (3.72-5.28); RED CELL DISTRIBUTION WIDTH 16.4 % (11.5-14.0); WHITE BLOOD COUNT 10.7 10^3/uL (4.0-10.5)
[2016-07-11 04:22] LABS: ANION GAP 7 (5-19); BLOOD UREA NITROGEN 15 mg/dL (7-20); CALCIUM 8.4 mg/dL (8.4-10.2); CARBON DIOXIDE 29 mmol/L (22-30); CHLORIDE 107 mmol/L (98-107); CREATININE RESULT 0.67 mg/dL (0.52-1.25); GLUCOSE 112 mg/dL (75-110); MAGNESIUM 1.7 mg/dL (1.6-2.3); POTASSIUM 3.3 mmol/L (3.6-5.0); SODIUM 143.1 mmol/L (137-145)
[2016-07-11 04:46] LABS: BASOPHILS % (MANUAL) 0 % (0-2); EOSINOPHILS % (MANUAL) 0 % (0-6); LYMPHOCYTES % (MANUAL) 6 % (13-45); TOTAL CELLS COUNTED 100
[2016-07-11 04:47] LABS: ANISOCYTOSIS 1+; HYPOCHROMASIA SLIGHT; OVALOCYTES SLIGHT; TOXIC GRANULATION SLIGHT
[2016-07-11] MEDS: LORAZEPAM INJ 2 MG/1 ML VIAL IV SCH ×2 (06:05→17:56)
[2016-07-11 06:06] LABS: ARTERIAL BLOOD BASE EXCESS 4.1 mmol/L; ARTERIAL BLOOD O2 SATURATION 97.5 % (94-98)
[2016-07-11] MEDS: LISINOPRIL 10 MG TABLET NG SCH (09:29)
[2016-07-11] MEDS: FUROSEMIDE INJ/PF 20 MG/2 ML SDV IV SCH (09:30)
[2016-07-11] MEDS: ASPIRIN 300 MG SUPP, RECTAL PR SCH (09:30)
[2016-07-11] MEDS: CLOPIDOGREL BISULFATE 75 MG TABLET NG SCH (09:30)
[2016-07-11] MEDS: CLONIDINE HCL 0.2 MG TABLET NG SCH ×2 (09:30→21:54)
[2016-07-11] MEDS: SERTRALINE HCL 50 MG TABLET NG SCH (09:30)
[2016-07-11] MEDS: CARVEDILOL 6.25 MG TABLET NG SCH ×2 (09:31→21:54)
[2016-07-11] MEDS: FAMOTIDINE INJ/PF 20 MG/2 ML SDV IV SCH ×2 (09:31→21:54)
[2016-07-11] MEDS: HEPARIN SOD (PORCINE) 5,000 UNIT/ML 1 ML SYRINGE SUBCUT SCH ×2 (09:32→21:54)
[2016-07-11] MEDS: LEVOFLOXACIN 750 MG/D5W RTU 150 ML IV SCH (09:32)
--- NOTE | 2016-07-11 12:00 | PDOC PROGRESS REPORT ---
Subjective Progress Note for:: 07/11/16 Subjective:: Per H&P: "CHARITY RAYMOND is a 56 year old female with underlying 24 /7 2 L per nasal cannula home O2 dependent COPD, ongoing tobacco use, 1/2-1 pack of cigarettes per day, along with underlying coronary artery disease, having suffered 3-4 myocardial infarctions,, last episode November of last year, with heart catheterization at that time revealing no further intervention necessary, status post previous coronary arterial bypass graft, along with hyperlipidemia, who presents to the emergency room via EMS for evaluation and treatment of above complaint. Patient has been discussed with emergency room physician who evaluated the patient. Patient is intubated and sedated and is able to provide no history whatsoever in terms of acute or chronic events, review of systems, personal habits, family history, etc. Sister, who is patient 's surrogate health care power of geological survey field assistant, is present and is quite informative and helpful no old records available for review.. Sister states the patient is "sick all the time." Was last on antibiotics 2 weeks ago for respiratory tract infection. Uncertain exactly which medication. Has not been hospitalized in the last 3 months, but has gone to the emergency room more than one time during that time span.. No specific sick contacts. Up-to-date on flu and probably pneumonia vaccinations. No prior intubation. Early evening of the , patient began having increasing respiratory distress and per her her usual routine, she took half milligram Ativan at that time. She suddenly awoke in the crank hand hours of admission in significant respiratory distress with wheezing. EMS arrived approximately 1:30 AM after patient called. Bronchodilators had been tried at home with no success. EMS tried more bronchodilators, but patient became apneic and required intubation in the field. " Patient remains intubated on mechanical ventilation and seems to be resting comfortably, but sedated and unable to participate in her exam. Sister reports that she's been sick for 4-6 weeks, has been off and on 2 separate courses of antibiotics and oral steroids, each time with at least minimal improvement but shortly after stopping the medication she would decline. She also reports continued smoking of at least a half pack per day. Reason for visit: Follow-up pneumonia, acute hypoxic respiratory failure Subjective: Patient remains intubated and seems to tolerate mechanical ventilation but did not weaning trial on 07/10/2016 for less than an hour before developing significant respiratory distress. She remains on a propofol at 80 g and now on scheduled Ativan twice a day and fentanyl patch as it's come to light that she uses Ativan on a daily basis at home and takes methadone twice a day at home. Nursing reports no new events otherwise. Patient remains to sedated and/or agitated to participate in her exam and review of systems. ROS: Unobtainable for reasons noted above. Physical Exam Vital Signs: Temp Pulse Resp BP Pulse Ox 97.0 F 63 21 H 152/73 H 99 07/11/16 08:00 07/11/16 08:00 07/11/16 08:01 07/11/16 08:01 07/11/16 08:01 Intake & Output 07/10/16 07/11/16 07/12/16 06:59 06:59 06:59 Intake Total 4309 Output Total 2280 3425 75 Balance -2280 884 -75 Weight 37 kg 36.6 kg EXAM GENERAL: NAD; thin with muscle wasting; no obese; sedated, unarousable HEENT: normocephalic, atraumatic; no conjunctival injection, no scleral icterus ; oral mucosa moist; ETT in good position with fog in the tube RESPIRATORY: no accessory muscle use, no increased WOB, weaning trial has yet to begin, good air entry bilaterally with diminished coarse breath sounds bilaterally; no wheezes, rales, rhonchi; minimal bilateral inspiratory crackles CARDIO: no JVD; RRR; no systolic murmur; no tachycardia GI: soft; thin; normal bowel sounds; no hepato spleno megaly; no rebound, rigidity, guarding; no grimace on palpation. VASCULAR: no carotid bruit; no abdominal bruit; no pallor; 2+ radial, DP pulse ; normal capillary refill EXTREMITIES: no palpable cords in calf; no clubbing, cyanosis, pedal edema PSYCH: Sedated SKIN: warm; moist; no petechiae; no telengectasias; no jaundice; no rash MSK: Diffuse muscle wasting of all extremities and intercostal muscles Results Laboratory Results: 07/11/16 03:22 07/11/16 03:22 07/10/16 07/11/16 07/11/16 18:59 03:22 03:22 WBC 10.7 H RBC 3.31 L Hgb 8.7 L Hct 26.7 L MCV 81 MCH 26.2 L MCHC 32.5 RDW 16.4 H Plt Count 191 Seg Neutrophils % Not Reportable Lymphocytes % Not Reportable Monocytes % Not Reportable Eosinophils % Not Reportable Basophils % Not Reportable Absolute Neutrophils Not Reportable Absolute Lymphocytes Not Reportable Absolute Monocytes Not Reportable Absolute Eosinophils Not Reportable Absolute Basophils Not Reportable Carbonic Acid 1.24 HCO3/H2CO3 Ratio 22:1 ABG pH 7.45 ABG pCO2 41.3 ABG pO2 78.0 L ABG HCO3 28.2 H ABG O2 Saturation 96.0 ABG Base Excess 3.9 FiO2 30% Sodium 143.1 Potassium 3.3 L Chloride 107 Carbon Dioxide 29 Anion Gap 7 BUN 15 Creatinine 0.67 Est GFR ( Amer) > 60 Est GFR (Non-Af Amer) > 60 Glucose 112 H Calcium 8.4 Magnesium 1.7 07/11/16 05:55 WBC RBC Hgb Hct MCV MCH MCHC RDW Plt Count Seg Neutrophils % Lymphocytes % Monocytes % Eosinophils % Basophils % Absolute Neutrophils Absolute Lymphocytes Absolute Monocytes Absolute Eosinophils Absolute Basophils Carbonic Acid 1.36 H HCO3/H2CO3 Ratio 21:1 ABG pH 7.43 ABG pCO2 45.2 H ABG pO2 96.9 ABG HCO3 29.0 H ABG O2 Saturation 97.5 ABG Base Excess 4.1 FiO2 30% Sodium Potassium Chloride Carbon Dioxide Anion Gap BUN Creatinine Est GFR ( Amer) Est GFR (Non-Af Amer) Glucose Calcium Magnesium 07/09/16 10:20 Tracheal Aspirate Gram Stain - Final 07/09/16 10:20 Tracheal Aspirate Sputum Culture - Final Serratia Marcescens C.albicans/C.dubliniensis Corynebacterium Striatum Normal Solange Absent Labs reviewed, mild hypokalemia otherwise her electrolytes are reassuring, arterial blood gas shows good response to current vent settings Impressions: Chest X-Ray 07/11/16 06:00 IMPRESSION: No significant interval change. Findings as noted above Status: Image reviewed by me - I think improved infiltrate in the right upper lobe otherwise no significant change Assessment & Plan - Diagnosis (1) Pneumonia Qualifiers: Pneumonia type: due to unspecified organism Laterality: right Lung location: upper lobe of lung Qualified Code(s): J18.1 - Lobar pneumonia, unspecified organism Is this a current diagnosis for this admission?: YesPlan: Some improvement. Continue broad-spectrum antibiotics and added Diflucan based on the sputum culture results. given her fixed lung disease she is at risk for gram-negative organisms. Also failed two outpatient antibiotic regimens. (2) Sepsis Qualifiers: Sepsis type: sepsis due to unspecified organism Qualified Code(s): A41.9 - Sepsis, unspecified organism Is this a current diagnosis for this admission?: YesPlan: Improved. Evidenced by tachypnea, leukocytosis and a known source with end organ damage involving respiratory failure and encephalopathy (3) Acute on chronic respiratory failure with hypoxia and hypercapnia Is this a current diagnosis for this admission?: YesPlan: Chronic home O2 at 2 L, now requiring additional supplemental O2 with associated CO2 retention. Continue mechanical ventilation, daily weaning trial during sedation vacation. If we can get her FiO2 requirement down around 40-50 % without respiratory distress she could likely extubate. Awaiting results of weaning trial from this morning, if she fails again we will need to initiate tube feeds for nutritional support. (4) Anemia Qualifiers: Anemia type: unspecified type Qualified Code(s): D64.9 - Anemia, unspecified Is this a current diagnosis for this admission?: YesPlan: Stable. Likely of chronic disease, no evidence for acute blood loss. Monitor H &H (5) COPD exacerbation Is this a current diagnosis for this admission?: YesPlan: As above, continue systemic steroids and nebulizers. (6) Hypernatremia Is this a current diagnosis for this admission?: YesPlan: Resolved. Mild and likely due to decreased oral intake, continue IV fluids and monitor. (7) Tobacco dependency Is this a current diagnosis for this admission?: YesPlan: Tobacco cessation counseling when able. (8) Protein-calorie malnutrition, moderate Is this a current diagnosis for this admission?: YesPlan: This will certainly complicate her recovery and she has little in the way of nutritional reserve. Start tube feeds if unable to extubate. (9) Hypokalemia Is this a current diagnosis for this admission?: YesPlan: Mild, change IV fluids accordingly. Follow-up in the morning with [facility] [facility] as well - Time Time Spent with patient: 35 or more minutes
[2016-07-11] MEDS: POTASSI CL 40 MEQ/D5-1/2NS 1L 1,000 ML IV PRN (12:15)
[2016-07-11] MEDS: FLUCONAZOLE 200 MG/NS RTU 100 ML IV SCH (17:55)
[2016-07-11] MEDS: ATORVASTATIN CALCIUM 40 MG TABLET NG SCH (21:54)
[2016-07-12] MEDS: INSULIN LISPRO 100 UNIT/ML 3 ML VIAL SUBCUT PRN ×4 (00:31→17:44)
[2016-07-12] MEDS: PROPOFOL 100 ML IV PRN ×4 (02:00→22:16)
[2016-07-12] MEDS: METHYLPREDNISOLONE INJ 40 MG/1 ML SDV IV SCH ×3 (02:00→17:43)
[2016-07-12] MEDS: PIPERACILLIN SODIUM/TAZOBACTAM 4.5 GM in NORMAL SALINE 100 ML IV SCH ×4 (02:01→21:17)
[2016-07-12] MEDS: IPRATROPIUM/ALBUTEROL 0.5-2.5 MG/3 ML AMPUL NEB SCH ×4 (02:33→20:45)
[2016-07-12 05:09] LABS: ARTERIAL BLOOD BASE EXCESS 4.7 mmol/L
[2016-07-12] MEDS: POTASSI CL 40 MEQ/D5-1/2NS 1L 1,000 ML IV PRN ×2 (05:29→22:16)
[2016-07-12] MEDS: LORAZEPAM INJ 2 MG/1 ML VIAL IV SCH ×2 (05:29→17:43)
[2016-07-12 09:06] LABS: HEMATOCRIT 29.1 % (36.0-47.0); HEMOGLOBIN 9.4 g/dL (12.0-15.5); HGB HCT DIFFERENCE -0.9; MEAN CORPUSCULAR HEMOGLOBIN 26.1 pg (27.0-33.4); MEAN CORPUSCULAR HGB CONC 32.2 g/dL (32.0-36.0); MEAN CORPUSCULAR VOLUME 81 fl (80-97); RED BLOOD COUNT 3.59 10^6/uL (3.72-5.28); RED CELL DISTRIBUTION WIDTH 16.7 % (11.5-14.0); WHITE BLOOD COUNT 9.2 10^3/uL (4.0-10.5)
[2016-07-12 09:24] LABS: ANION GAP 7 (5-19); BLOOD UREA NITROGEN 18 mg/dL (7-20); CALCIUM 8.2 mg/dL (8.4-10.2); CARBON DIOXIDE 29 mmol/L (22-30); CHLORIDE 108 mmol/L (98-107); CREATININE RESULT 0.54 mg/dL (0.52-1.25); GLUCOSE 181 mg/dL (75-110); POTASSIUM 3.3 mmol/L (3.6-5.0)
[2016-07-12 09:37] LABS: BASOPHILS % (MANUAL) 0 % (0-2); EOSINOPHILS % (MANUAL) 0 % (0-6); LYMPHOCYTES % (MANUAL) 3 % (13-45); TOTAL CELLS COUNTED 100
[2016-07-12 09:39] LABS: ANISOCYTOSIS 1+; HYPOCHROMASIA SLIGHT; OVALOCYTES SLIGHT; POIKILOCYTOSIS SLIGHT; TOXIC GRANULATION SLIGHT
[2016-07-12] MEDS: LISINOPRIL 10 MG TABLET NG SCH (10:11)
[2016-07-12] MEDS: SERTRALINE HCL 50 MG TABLET NG SCH (10:12)
[2016-07-12] MEDS: ASPIRIN 300 MG SUPP, RECTAL PR SCH (10:12)
[2016-07-12] MEDS: FUROSEMIDE INJ/PF 20 MG/2 ML SDV IV SCH (10:12)
[2016-07-12] MEDS: CARVEDILOL 6.25 MG TABLET NG SCH ×2 (10:12→21:18)
[2016-07-12] MEDS: CLOPIDOGREL BISULFATE 75 MG TABLET NG SCH (10:12)
[2016-07-12] MEDS: CLONIDINE HCL 0.2 MG TABLET NG SCH ×2 (10:12→21:18)
[2016-07-12] MEDS: LEVOFLOXACIN 750 MG/D5W RTU 150 ML IV SCH (10:13)
[2016-07-12] MEDS: HEPARIN SOD (PORCINE) 5,000 UNIT/ML 1 ML SYRINGE SUBCUT SCH ×2 (10:13→21:17)
[2016-07-12] MEDS: FAMOTIDINE INJ/PF 20 MG/2 ML SDV IV SCH ×2 (10:13→21:18)
--- NOTE | 2016-07-12 11:16 | PDOC PROGRESS REPORT ---
Subjective Progress Note for:: 07/12/16 Subjective:: Per H&P: "CHARITY RAYMOND is a 56 year old female with underlying 24 /7 2 L per nasal cannula home O2 dependent COPD, ongoing tobacco use, 1/2-1 pack of cigarettes per day, along with underlying coronary artery disease, having suffered 3-4 myocardial infarctions,, last episode November of last year, with heart catheterization at that time revealing no further intervention necessary, status post previous coronary arterial bypass graft, along with hyperlipidemia, who presents to the emergency room via EMS for evaluation and treatment of above complaint. Patient has been discussed with emergency room physician who evaluated the patient. Patient is intubated and sedated and is able to provide no history whatsoever in terms of acute or chronic events, review of systems, personal habits, family history, etc. Sister, who is patient 's surrogate health care power of traffic law attorney, is present and is quite informative and helpful no old records available for review.. Sister states the patient is "sick all the time." Was last on antibiotics 2 weeks ago for respiratory tract infection. Uncertain exactly which medication. Has not been hospitalized in the last 3 months, but has gone to the emergency room more than one time during that time span.. No specific sick contacts. Up-to-date on flu and probably pneumonia vaccinations. No prior intubation. Early evening of the , patient began having increasing respiratory distress and per her her usual routine, she took half milligram Ativan at that time. 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 EMS arrived approximately 1:30 AM after patient called. Bronchodilators had been tried at home with no success. EMS tried more bronchodilators, but patient became apneic and required intubation in the field. " Patient remains intubated on mechanical ventilation and seems to be resting comfortably, but sedated and unable to participate in her exam. Sister reports that she's been sick for 4-6 weeks, has been off and on 2 separate courses of antibiotics and oral steroids, each time with at least minimal improvement but shortly after stopping the medication she would decline. She also reports continued smoking of at least a half pack per day. did not tolerate weaning trial on 07/10/2016 lasting less than an hour before developing significant respiratory distress, and again on 07/11/2016 she did last a few hours before fatiguing. She remains on a propofol at 70 g and now on scheduled Ativan twice a day and fentanyl patch as it's come to light that she uses Ativan on a daily basis at home and takes methadone twice a day at home. Reason for visit: Follow-up pneumonia, acute hypoxic respiratory failure Subjective: Patient remains intubated and resting comfortably on mechanical ventilation but easily agitated according to nursing staff as they try to wean her sedation. Nursing reports no new events otherwise. Patient remains to sedated and/or agitated to participate in her exam and review of systems. ROS: Unobtainable for reasons noted above. Physical Exam Vital Signs: Temp Pulse Resp BP Pulse Ox 98.8 F 71 18 138/67 H 97 07/12/16 03:45 07/12/16 07:32 07/12/16 10:23 07/12/16 10:23 07/12/16 10:23 Intake & Output 07/11/16 07/12/16 07/13/16 06:59 06:59 06:59 Intake Total 4309 2517 Output Total 3425 3000 125 Balance 884 -483 -125 Weight 36.6 kg 36 kg EXAM GENERAL: NAD; thin with muscle wasting; no obese; sedated, unarousable on 70 micrograms of propofol, fentanyl patch, scheduled Ativan twice a day HEENT: normocephalic, atraumatic; pupils equal round and reactive to light; no conjunctival injection, no scleral icterus; oral mucosa moist; ETT in good position with fog in the tube, OG tube in place with 2 periods running. RESPIRATORY: no accessory muscle use, no increased WOB, tolerating weaning trial 2 hours running, good air entry bilaterally with diminished coarse breath sounds bilaterally; no wheezes, rales, rhonchi; minimal bilateral inspiratory crackles CARDIO: no JVD; RRR; no systolic murmur; no tachycardia GI: soft; thin; normal bowel sounds; no hepato spleno megaly; no rebound, rigidity, guarding; no grimace on palpation. VASCULAR: no carotid bruit; no abdominal bruit; no pallor; 2+ radial, DP pulse ; normal capillary refill EXTREMITIES: no palpable cords in calf; no clubbing, cyanosis, pedal edema PSYCH: Sedated but easily agitated according to the nursing staff as her sedation is weaned SKIN: warm; moist; no petechiae; no telengectasias; no jaundice; no rash MSK: Diffuse muscle wasting of all extremities and intercostal muscles Results Laboratory Results: 07/12/16 08:54 07/12/16 08:54 07/12/16 07/12/16 07/12/16 05:00 08:54 08:54 WBC 9.2 RBC 3.59 L Hgb 9.4 L Hct 29.1 L MCV 81 MCH 26.1 L MCHC 32.2 RDW 16.7 H Plt Count 202 Seg Neutrophils % Not Reportable Lymphocytes % Not Reportable Monocytes % Not Reportable Eosinophils % Not Reportable Basophils % Not Reportable Absolute Neutrophils Not Reportable Absolute Lymphocytes Not Reportable Absolute Monocytes Not Reportable Absolute Eosinophils Not Reportable Absolute Basophils Not Reportable Carbonic Acid 1.40 H HCO3/H2CO3 Ratio 21:1 ABG pH 7.42 ABG pCO2 46.6 H ABG pO2 73.7 L ABG HCO3 29.8 H ABG O2 Saturation 95.0 ABG Base Excess 4.7 FiO2 30% Sodium 144.0 Potassium 3.3 L Chloride 108 H Carbon Dioxide 29 Anion Gap 7 BUN 18 Creatinine 0.54 Est GFR ( Amer) > 60 Est GFR (Non-Af Amer) > 60 Glucose 181 H Calcium 8.2 L 07/09/16 10:20 Tracheal Aspirate Gram Stain - Final 07/09/16 10:20 Tracheal Aspirate Sputum Culture - Final Serratia Marcescens C.albicans/C.dubliniensis Corynebacterium Striatum Normal Solange Absent Labs reviewed, potassium remains low, his magnesium was 1.7 yesterday, arterial blood gas shows appropriate response to current settings, CBC shows improved H& H this morning. Impressions: Chest X-Ray 07/11/16 06:00 IMPRESSION: No significant interval change. Findings as noted above Status: Imported from PACS - Report reviewed Assessment & Plan - Diagnosis (1) Pneumonia Qualifiers: Pneumonia type: due to unspecified organism Laterality: right Lung location: upper lobe of lung Qualified Code(s): J18.1 - Lobar pneumonia, unspecified organism Is this a current diagnosis for this admission?: YesPlan: Some improvement. Wean antibiotics starting with Levaquin, leaving the Zosyn to cover the Corynebacterium and Serratia species and continue Diflucan for the Betsey species. given her fixed lung disease she is at risk for gram-negative organisms. Also failed two outpatient antibiotic regimens. (2) Sepsis Qualifiers: Sepsis type: sepsis due to unspecified organism Qualified Code(s): A41.9 - Sepsis, unspecified organism Is this a current diagnosis for this admission?: YesPlan: Resolved. Evidenced by tachypnea, leukocytosis and a known source with end organ damage involving respiratory failure and encephalopathy (3) Acute on chronic respiratory failure with hypoxia and hypercapnia Is this a current diagnosis for this admission?: YesPlan: Chronic home O2 at 2 L, now requiring additional supplemental O2 with associated CO2 retention. Continue mechanical ventilation, daily weaning trial during sedation vacation. If we can get her FiO2 requirement down around 40-50 % without respiratory distress she could likely extubate. Awaiting results of weaning trial from this morning but so far showing improvement, will likely take a more conservative approach and allow her to do more of the work of breathing, building her strength prior to extubation. (4) Anemia Qualifiers: Anemia type: unspecified type Qualified Code(s): D64.9 - Anemia, unspecified Is this a current diagnosis for this admission?: YesPlan: H&H improved. Likely of chronic disease worsened by sepsis, no evidence for acute blood loss. Monitor H&H (5) COPD exacerbation Is this a current diagnosis for this admission?: YesPlan: As above, continue systemic steroids and nebulizers. (6) Hypernatremia Is this a current diagnosis for this admission?: YesPlan: Resolved. Mild and likely due to decreased oral intake, continue IV fluids and monitor. (7) Tobacco dependency Is this a current diagnosis for this admission?: Yes (8) Protein-calorie malnutrition, moderate Is this a current diagnosis for this admission?: YesPlan: This will certainly complicate her recovery and she has little in the way of nutritional reserve. Continue tube feeds until extubated. (9) Hypokalemia Is this a current diagnosis for this admission?: YesPlan: Adjust IV fluids and potassium runners. Follow-up in the morning with mag level as well. Magnesium was borderline low will give 2 g of mag sulfate today. - Time Time Spent with patient: 35 or more minutes - Plan Summary Plan Summary: Continue attempts to wean from the ventilator heading toward extubation hopefully within the next 24 hours.
[2016-07-12] MEDS ORDERED: POTASSI CL 20 MEQ/50 ML RIDER 50 ML IV ONE (12:00)
[2016-07-12] MEDS: MAGNESIUM SULFATE/D5W 100 ML IV SCH ×2 (12:14→13:33)
[2016-07-12] MEDS: FLUCONAZOLE 100 MG TABLET NG SCH (17:43)
[2016-07-12] MEDS: ATORVASTATIN CALCIUM 40 MG TABLET NG SCH (21:18)
[2016-07-13] MEDS: PIPERACILLIN SODIUM/TAZOBACTAM 4.5 GM in NORMAL SALINE 100 ML IV SCH ×4 (02:03→20:05)
[2016-07-13] MEDS: METHYLPREDNISOLONE INJ 40 MG/1 ML SDV IV SCH ×3 (02:03→17:02)
[2016-07-13] MEDS: IPRATROPIUM/ALBUTEROL 0.5-2.5 MG/3 ML AMPUL NEB SCH ×4 (02:39→20:25)
[2016-07-13] MEDS: INSULIN LISPRO 100 UNIT/ML 3 ML VIAL SUBCUT PRN (05:30)
[2016-07-13] MEDS: LORAZEPAM INJ 2 MG/1 ML VIAL IV SCH ×2 (05:31→17:04)
[2016-07-13] MEDS: PROPOFOL 100 ML IV PRN (05:31)
[2016-07-13 08:14] LABS: PROTHROMBIN TIME 15.3 SEC (11.4-15.4)
[2016-07-13 08:15] LABS: PARTIAL THROMBOPLASTIN TIME 35.8 SEC (23.5-35.8)
[2016-07-13 08:19] LABS: HEMATOCRIT 28.1 % (36.0-47.0); HGB HCT DIFFERENCE -1.1; MEAN CORPUSCULAR HEMOGLOBIN 25.8 pg (27.0-33.4); MEAN CORPUSCULAR HGB CONC 31.8 g/dL (32.0-36.0); MEAN CORPUSCULAR VOLUME 81 fl (80-97); RED BLOOD COUNT 3.47 10^6/uL (3.72-5.28); RED CELL DISTRIBUTION WIDTH 16.4 % (11.5-14.0); WHITE BLOOD COUNT 11.5 10^3/uL (4.0-10.5)
[2016-07-13 08:19] LABS: ARTERIAL BLOOD BASE EXCESS 4.9 mmol/L; ARTERIAL BLOOD O2 SATURATION 96.6 % (94-98)
[2016-07-13 08:30] LABS: BASOPHILS % (MANUAL) 0 % (0-2); EOSINOPHILS % (MANUAL) 0 % (0-6); LYMPHOCYTES % (MANUAL) 1 % (13-45); TOTAL CELLS COUNTED 100
[2016-07-13 08:31] LABS: ANISOCYTOSIS 1+; HYPOCHROMASIA 1+
[2016-07-13 08:36] LABS: BLOOD UREA NITROGEN 22 mg/dL (7-20); CARBON DIOXIDE 30 mmol/L (22-30); CREATININE RESULT 0.51 mg/dL (0.52-1.25); GLUCOSE 179 mg/dL (75-110); TRIGLYCERIDES 113 mg/dL (<150)
[2016-07-13 08:44] LABS: CHLORIDE 106 mmol/L (98-107); POTASSIUM 4.2 mmol/L (3.6-5.0); SODIUM 139.2 mmol/L (137-145)
[2016-07-13 08:45] LABS: ANION GAP 3 (5-19)
[2016-07-13] MEDS: HEPARIN SOD (PORCINE) 5,000 UNIT/ML 1 ML SYRINGE SUBCUT SCH ×2 (10:00→21:12)
[2016-07-13] MEDS: FUROSEMIDE INJ/PF 20 MG/2 ML SDV IV SCH (10:01)
[2016-07-13] MEDS: SERTRALINE HCL 50 MG TABLET NG SCH (10:01)
[2016-07-13] MEDS: LISINOPRIL 10 MG TABLET NG SCH (10:02)
[2016-07-13] MEDS: FAMOTIDINE INJ/PF 20 MG/2 ML SDV IV SCH ×2 (10:02→21:11)
[2016-07-13] MEDS: ASPIRIN 300 MG SUPP, RECTAL PR SCH (10:02)
[2016-07-13] MEDS: CLOPIDOGREL BISULFATE 75 MG TABLET NG SCH (10:02)
[2016-07-13] MEDS: CARVEDILOL 6.25 MG TABLET NG SCH ×2 (10:02→21:11)
[2016-07-13] MEDS: CLONIDINE HCL 0.2 MG TABLET NG SCH ×2 (10:02→21:11)
[2016-07-13] MEDS: POTASSI CL 40 MEQ/D5-1/2NS 1L 1,000 ML IV PRN ×2 (10:14→23:46)
--- NOTE | 2016-07-13 10:17 | PDOC PROGRESS REPORT ---
Subjective Progress Note for:: 07/13/16 Subjective:: Per H&P: "CHARITY RAYMOND is a 56 year old female with underlying 24 /7 2 L per nasal cannula home O2 dependent COPD, ongoing tobacco use, 1/2-1 pack of cigarettes per day, along with underlying coronary artery disease, having suffered 3-4 myocardial infarctions,, last episode November of last year, with heart catheterization at that time revealing no further intervention necessary, status post previous coronary arterial bypass graft, along with hyperlipidemia, who presents to the emergency room via EMS for evaluation and treatment of above complaint. Patient has been discussed with emergency room physician who evaluated the patient. Patient is intubated and sedated and is able to provide no history whatsoever in terms of acute or chronic events, review of systems, personal habits, family history, etc. Sister, who is patient 's surrogate health care power of energy attorney, is present and is quite informative and helpful no old records available for review.. Sister states the patient is "sick all the time." Was last on antibiotics 2 weeks ago for respiratory tract infection. Uncertain exactly which medication. Has not been hospitalized in the last 3 months, but has gone to the emergency room more than one time during that time span.. No specific sick contacts. Up-to-date on flu and probably pneumonia vaccinations. No prior intubation. Early evening of the , patient began having increasing respiratory distress and per her her usual routine, she took half milligram Ativan at that time. 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 EMS arrived approximately 1:30 AM after patient called. Bronchodilators had been tried at home with no success. EMS tried more bronchodilators, but patient became apneic and required intubation in the field. " Patient remains intubated on mechanical ventilation and seems to be resting comfortably, but sedated and unable to participate in her exam. Sister reports that she's been sick for 4-6 weeks, has been off and on 2 separate courses of antibiotics and oral steroids, each time with at least minimal improvement but shortly after stopping the medication she would decline. She also reports continued smoking of at least a half pack per day. did not tolerate weaning trial on 07/10/2016 lasting less than an hour before developing significant respiratory distress, and again on 07/11/2016 though she did last a few hours before fatiguing, and on 07/12/2016 she improved further lasting until approximately 1700 hrs. before fatiguing. She remains on a propofol and now on scheduled Ativan twice a day and fentanyl patch as it's come to light that she uses Ativan on a daily basis at home and takes methadone twice a day at home. Reason for visit: Follow-up pneumonia, acute hypoxic respiratory failure Subjective: Patient remains intubated and resting comfortably on mechanical ventilation. nursing reports no new events otherwise. Patient remains too sedated to participate in her exam and review of systems. No significant secretions requiring suctioning. Chest x-ray is clearing. Tube feedings are tolerated at 35 miles per hour. No change in her sedation requirements. No changes required vent settings. ROS: Unobtainable for reasons noted above. Physical Exam Vital Signs: Temp Pulse Resp BP Pulse Ox 97.5 F 61 18 148/73 H 97 07/13/16 06:00 07/13/16 07:02 07/13/16 06:00 07/13/16 05:23 07/13/16 06:00 Intake & Output 07/12/16 07/13/16 07/14/16 06:59 06:59 06:59 Intake Total 2517 3828 Output Total 3000 2285 60 Balance -483 1543 -60 Weight 36 kg 37.8 kg EXAM GENERAL: NAD; thin with muscle wasting; no obese; sedated, arousable on 50 micrograms of propofol, fentanyl patch, scheduled Ativan twice a day HEENT: normocephalic, atraumatic; pupils equal round and reactive to light; no conjunctival injection, no scleral icterus; oral mucosa moist; ETT in good position with fog in the tube, OG tube in place with tube feed running. RESPIRATORY: no accessory muscle use, no increased WOB, good air entry bilaterally with diminished coarse breath sounds bilaterally; no wheezes, rales , rhonchi; minimal bilateral inspiratory crackles CARDIO: no JVD; RRR; no systolic murmur; no tachycardia GI: soft; thin; normal bowel sounds; no rebound, rigidity, involuntary guarding ; no grimace on palpation. VASCULAR: no carotid bruit; no abdominal bruit; no pallor; 2+ radial, DP pulse ; normal capillary refill EXTREMITIES: no palpable cords in calf; no clubbing, cyanosis, pedal edema PSYCH: Sedated SKIN: warm; moist; no petechiae; no telengectasias; no jaundice; no rash MSK: Diffuse muscle wasting of all extremities and intercostal muscles Results Laboratory Results: 07/13/16 07:55 07/13/16 07:55 07/13/16 07/13/16 07/13/16 07:55 07:55 08:00 WBC 11.5 H RBC 3.47 L Hgb 9.0 L Hct 28.1 L MCV 81 MCH 25.8 L MCHC 31.8 L RDW 16.4 H Plt Count 189 Seg Neutrophils % Not Reportable Lymphocytes % Not Reportable Monocytes % Not Reportable Eosinophils % Not Reportable Basophils % Not Reportable Absolute Neutrophils Not Reportable Absolute Lymphocytes Not Reportable Absolute Monocytes Not Reportable Absolute Eosinophils Not Reportable Absolute Basophils Not Reportable Carbonic Acid 1.41 H HCO3/H2CO3 Ratio 21:1 ABG pH 7.42 ABG pCO2 46.8 H ABG pO2 85.3 ABG HCO3 29.9 H ABG O2 Saturation 96.6 ABG Base Excess 4.9 FiO2 30% Sodium 139.2 Potassium 4.2 Chloride 106 Carbon Dioxide 30 Anion Gap 3 L BUN 22 H Creatinine 0.51 L Est GFR ( Amer) > 60 Est GFR (Non-Af Amer) > 60 Glucose 179 H Calcium 8.0 L Triglycerides 113 Labs are reviewed and are showing an improving trends, stable H&H Impressions: KUB X-Ray 07/09/16 00:00 IMPRESSION: NASOGASTRIC TUBE DESCRIBED. FURTHER ADVANCEMENT MAY BE NECESSARY. NO RADIOGRAPHIC EVIDENCE FOR ACUTE ABDOMINAL DISEASE. Chest X-Ray 07/13/16 07:01 IMPRESSION: 1. Support tubes and lines as above. 2. Small vague density noted in the lateral left lung base which could represent atelectasis versus edema/infiltrate. Correlate clinically. Status: Image reviewed by me - Chest x-ray shows resolution of the right upper lobe infiltrate by my interpretation Assessment & Plan - Diagnosis (1) Pneumonia Qualifiers: Pneumonia type: due to unspecified organism Laterality: right Lung location: upper lobe of lung Qualified Code(s): J18.1 - Lobar pneumonia, unspecified organism Is this a current diagnosis for this admission?: YesPlan: Continues to improve. Weaned antibiotics on 07/12/2016 starting with Levaquin, leaving the Zosyn to cover the Corynebacterium and Serratia species and continue Diflucan for the Betsey species. given her fixed lung disease she is at risk for gram-negative organisms. Also failed two outpatient antibiotic regimens. (2) Sepsis Qualifiers: Sepsis type: sepsis due to unspecified organism Qualified Code(s): A41.9 - Sepsis, unspecified organism Is this a current diagnosis for this admission?: YesPlan: Resolved. Evidenced by tachypnea, leukocytosis and a known source with end organ damage involving respiratory failure and encephalopathy (3) Acute on chronic respiratory failure with hypoxia and hypercapnia Is this a current diagnosis for this admission?: YesPlan: Chronic home O2 at 2 L, now requiring additional supplemental O2 with associated CO2 retention. Continue attempts to wean mechanical ventilation. if we can get her FiO2 requirement down around 40-50% without respiratory distress she could likely extubate. Awaiting results of weaning trial from this morning but so far showing improvement, will likely take a more conservative approach and allow her to do more of the work of breathing, building her strength prior to extubation anticipated later today (4) Anemia Qualifiers: Anemia type: unspecified type Qualified Code(s): D64.9 - Anemia, unspecified Is this a current diagnosis for this admission?: YesPlan: H&H stable. Likely of chronic disease worsened by sepsis, no evidence for acute blood loss. Monitor H&H (5) COPD exacerbation Is this a current diagnosis for this admission?: YesPlan: As above, continue systemic steroids and nebulizers. (6) Hypernatremia Is this a current diagnosis for this admission?: YesPlan: Resolved. Mild and likely due to decreased oral intake, continue IV fluids and monitor. (7) Tobacco dependency Is this a current diagnosis for this admission?: YesPlan: Tobacco cessation counseling when able. (8) Protein-calorie malnutrition, moderate Is this a current diagnosis for this admission?: YesPlan: This will certainly complicate her recovery and she has little in the way of nutritional reserve. Continue tube feeds until extubated. (9) Hypokalemia Is this a current diagnosis for this admission?: YesPlan: Adjust IV fluids and potassium runners. Follow-up in the morning with mag level as well. Magnesium was borderline low will give 2 g of mag sulfate today. - Time Time Spent with patient: 35 or more minutes - Plan Summary Plan Summary: Likely extubate later today.
[2016-07-13] MEDS: FLUCONAZOLE 100 MG TABLET NG SCH (17:03)
[2016-07-13] MEDS: FENTANYL 25 MCG/HR PATCH.TD72 TD SCH (17:03)
[2016-07-13] MEDS ORDERED: OXYCODONE HCL IR 5 MG TABLET ONE (19:54)
[2016-07-13] MEDS: OXYCODONE HCL IR 5 MG TABLET PO PRN (19:56)
[2016-07-13] MEDS: ATORVASTATIN CALCIUM 40 MG TABLET NG SCH (21:11)
[2016-07-14] MEDS: PIPERACILLIN SODIUM/TAZOBACTAM 4.5 GM in NORMAL SALINE 100 ML IV SCH ×4 (02:16→22:06)
[2016-07-14] MEDS: METHYLPREDNISOLONE INJ 40 MG/1 ML SDV IV SCH ×3 (02:17→17:46)
[2016-07-14] MEDS: IPRATROPIUM/ALBUTEROL 0.5-2.5 MG/3 ML AMPUL NEB SCH ×4 (02:20→20:10)
[2016-07-14 04:28] LABS: ANION GAP 5 (5-19); BLOOD UREA NITROGEN 23 mg/dL (7-20); CALCIUM 8.3 mg/dL (8.4-10.2); CARBON DIOXIDE 31 mmol/L (22-30); CHLORIDE 104 mmol/L (98-107); CREATININE RESULT 0.62 mg/dL (0.52-1.25); GLUCOSE 134 mg/dL (75-110); MAGNESIUM 1.9 mg/dL (1.6-2.3); POTASSIUM 4.7 mmol/L (3.6-5.0); SODIUM 140.4 mmol/L (137-145)
[2016-07-14] MEDS: LORAZEPAM INJ 2 MG/1 ML VIAL IV SCH ×2 (05:26→17:46)
[2016-07-14] MEDS ORDERED: ACETAMINOPHEN 325 MG TABLET PO PRN (08:28)
[2016-07-14] MEDS: HEPARIN SOD (PORCINE) 5,000 UNIT/ML 1 ML SYRINGE SUBCUT SCH ×2 (10:15→22:06)
[2016-07-14] MEDS: CARVEDILOL 6.25 MG TABLET PO SCH ×2 (10:16→23:26)
[2016-07-14] MEDS: SERTRALINE HCL 50 MG TABLET PO SCH (10:16)
[2016-07-14] MEDS: ASPIRIN 81 MG TABLET, ENT COATED PO SCH (10:16)
[2016-07-14] MEDS: LISINOPRIL 10 MG TABLET PO SCH (10:16)
[2016-07-14] MEDS: LACTOBACILLUS ACIDOPHILUS 250 MG TAB PO SCH ×2 (10:19→17:46)
[2016-07-14] MEDS: CLOPIDOGREL BISULFATE 75 MG TABLET PO SCH (10:19)
[2016-07-14] MEDS: FAMOTIDINE INJ/PF 20 MG/2 ML SDV IV SCH ×2 (10:20→22:07)
[2016-07-14] MEDS: FUROSEMIDE INJ/PF 20 MG/2 ML SDV IV SCH (10:20)
[2016-07-14] MEDS: CLONIDINE HCL 0.2 MG TABLET PO SCH ×2 (10:38→23:24)
--- NOTE | 2016-07-14 10:54 | PDOC PROGRESS REPORT ---
Subjective Progress Note for:: 07/14/16 Subjective:: Reason for visit: Follow-up pneumonia, acute hypoxic respiratory failure HOSPTIAL COURSE: Per H&P by Dr Stuart - "CHARITY RAYMOND is a 56 year old female with underlying 24/7 2 L per nasal cannula home O2 dependent COPD, ongoing tobacco use, 1/2-1 pack of cigarettes per day, along with underlying coronary artery disease, having suffered 3-4 myocardial infarctions, , last episode November of last year, with heart catheterization at that time revealing no further intervention necessary, status post previous coronary arterial bypass graft, along with hyperlipidemia, who presents to the emergency room via EMS for evaluation and treatment of above complaint. Patient has been discussed with emergency room physician who evaluated the patient. Patient is intubated and sedated and is able to provide no history whatsoever in terms of acute or chronic events, review of systems, personal habits, family history, etc. Sister, who is patient's surrogate health care power of ip attorney, is present and is quite informative and helpful no old records available for review.. Sister states the patient is "sick all the time." Was last on antibiotics 2 weeks ago for respiratory tract infection. Uncertain exactly which medication. Has not been hospitalized in the last 3 months, but has gone to the emergency room more than one time during that time span.. No specific sick contacts. Up-to-date on flu and probably pneumonia vaccinations. No prior intubation. Early evening of the , patient began having increasing respiratory distress and per her her usual routine, she took half milligram Ativan at that time. She suddenly awoke in the machinery mechanic hours of admission in significant respiratory distress with wheezing. EMS arrived approximately 1:30 AM after patient called. Bronchodilators had been tried at home with no success. EMS tried more bronchodilators, but patient became apneic and required intubation in the field." Sister reports that she's been sick for 4-6 weeks, has been off and on 2 separate courses of antibiotics and oral steroids, each time with at least minimal improvement but shortly after stopping the medication she would decline. She also reports continued smoking of at least a half pack per day. Patient remained intubated on mechanical ventilation through the morning of 07/13 and successfully extubated later that day, resting comfortably on her usual 2L/min supplemental O2. She takes a rather potent for her size narcotic regimen at home including methadone bid and ativan prn with regular/daily use; now on scheduled Ativan twice a day and fentanyl patch. She remains very frail and weak, received TFs during intubation. Subjective: very confused this morning, there are moments where she is more lucid but they aren't consistent. remains very weak and c/o sharp neck pain, an old familiar pain and the reason she takes the methadone it seems. she is very anxious at times per staff; she has no idea where she is or why she came to be here and no recollection of contacting EMS for respiratory distress. no family at bedside this morning. she denies chest pain, palpitations, N/V/D, vision changes, N/T anywhere. c/o dyspnea and productive cough. ROS: per HPI plus a total of 10 systems reviewed, pertinent positives and negatives noted above, remaining systems negative. Physical Exam Vital Signs: Temp Pulse Resp BP Pulse Ox 98.6 F 70 24 H 165/64 H 100 07/14/16 08:00 07/14/16 08:20 07/14/16 08:20 07/14/16 08:00 07/14/16 08:00 Intake & Output 07/13/16 07/14/16 07/15/16 06:59 06:59 06:59 Intake Total 3828 2962 45 Output Total 2285 2835 Balance 1543 127 45 Weight 37.8 kg 36.1 kg EXAM GENERAL: NAD; thin with muscle wasting; no obese; arousable but speaks very softly, answers appropriate but oriented only to person HEENT: normocephalic, atraumatic; pupils equal round and reactive to light; no conjunctival injection, no scleral icterus; oral mucosa a bit dry; RESPIRATORY: no accessory muscle use, mild increased tachypnea, good air entry bilaterally with diminished coarse breath sounds bilaterally; a few exp wheezes anteriorly but no rales, rhonchi CARDIO: no JVD; RRR; no systolic murmur; no tachycardia GI: soft; thin; normal bowel sounds; no rebound, rigidity, involuntary guarding ; no grimace on palpation. VASCULAR: no pallor; 2+ radial, DP pulse; normal capillary refill EXTREMITIES: no palpable cords in calf; no clubbing, cyanosis, pedal edema PSYCH: awake and cooperative, very anxious and seems a bit paranoid at times, i.e. cautious about allowing me to examine her SKIN: warm; moist; no petechiae; no telengectasias; no jaundice; no rash MSK: Diffuse muscle wasting of all extremities and intercostal muscles as before Results Laboratory Results: 07/13/16 07:55 07/14/16 04:01 07/14/16 04:01 Sodium 140.4 Potassium 4.7 Chloride 104 Carbon Dioxide 31 H Anion Gap 5 BUN 23 H Creatinine 0.62 Est GFR ( Amer) > 60 Est GFR (Non-Af Amer) > 60 Glucose 134 H Calcium 8.3 L Magnesium 1.9 Labs reviewed, chemistries reassuring, CBC shows fluctuating H&H, still no evidence of blood loss at the bedside. Impressions: Chest X-Ray 07/13/16 07:01 IMPRESSION: 1. Support tubes and lines as above. 2. Small vague density noted in the lateral left lung base which could represent atelectasis versus edema/infiltrate. Correlate clinically. Status: Image reviewed by me - Agree with radiology Assessment & Plan - Diagnosis (1) Pneumonia Qualifiers: Pneumonia type: due to unspecified organism Laterality: right Lung location: upper lobe of lung Qualified Code(s): J18.1 - Lobar pneumonia, unspecified organism Is this a current diagnosis for this admission?: YesPlan: Continues to gradually improve. Weaned antibiotics on 07/12/2016 by discontinuing Levaquin, leaving the Zosyn to cover the Corynebacterium and Serratia species and the Diflucan for the Betsey species. given her fixed lung disease she is at risk for gram-negative organisms and apparent mind she also failed two outpatient antibiotic regimens. (2) Sepsis Qualifiers: Sepsis type: sepsis due to unspecified organism Qualified Code(s): A41.9 - Sepsis, unspecified organism Is this a current diagnosis for this admission?: YesPlan: Resolved. Initially Evidenced by tachypnea, leukocytosis and a known source with end organ damage involving respiratory failure and encephalopathy (3) Acute on chronic respiratory failure with hypoxia and hypercapnia Is this a current diagnosis for this admission?: YesPlan: Back to baseline Chronic home O2 at 2 L. increase activity with physical therapy , continue pulmonary toilet (4) Anemia Qualifiers: Anemia type: unspecified type Qualified Code(s): D64.9 - Anemia, unspecified Is this a current diagnosis for this admission?: YesPlan: H&H stable. Likely of chronic disease worsened by sepsis, no evidence for acute blood loss. Monitor H&H (5) COPD exacerbation Is this a current diagnosis for this admission?: YesPlan: As above, continue systemic steroids and nebulizers, can probably start to wean those as early as Thursday. (6) Hypernatremia Is this a current diagnosis for this admission?: YesPlan: Resolved. Mild and likely due to decreased oral intake, continue IV fluids and monitor. (7) Tobacco dependency Is this a current diagnosis for this admission?: YesPlan: Tobacco cessation counseling when able. (8) Protein-calorie malnutrition, moderate Is this a current diagnosis for this admission?: YesPlan: This will certainly complicate her recovery and she has little in the way of nutritional reserve. Given tube feeds while intubated. Nutrition consult, start oral supplement and advance diet as tolerated. (9) Hypokalemia Is this a current diagnosis for this admission?: YesPlan: Resolved with replacement. (10) Hypertension Qualifiers: Hypertension type: essential hypertension Qualified Code(s): I10 - Essential (primary) hypertension Is this a current diagnosis for this admission?: YesPlan: Continue daily dosing of diuretic and titrate antihypertensive regimen as needed. (11) Chronic pain syndrome Is this a current diagnosis for this admission?: YesPlan: Narcotic dependent. Continue phenyl patch for now to prevent withdrawal supplemented with as needed analgesics. Consider resumption of her home methadone at some point in the near future when her respiratory status and mental status clears. - Time Time Spent with patient: 25-34 minutes - Plan Summary Plan Summary: Stable to downgrade to [facility]. Start physical therapy in an effort to determine and improve functional status, may need a course of rehabilitation before returning home to independent living.
[2016-07-14] MEDS: POTASSI CL 40 MEQ/D5-1/2NS 1L 1,000 ML IV PRN (14:11)
[2016-07-14] MEDS: FLUCONAZOLE 100 MG TABLET PO SCH (17:47)
[2016-07-14] MEDS: ATORVASTATIN CALCIUM 40 MG TABLET PO SCH (22:07)
[2016-07-15] MEDS: METHYLPREDNISOLONE INJ 40 MG/1 ML SDV IV SCH ×3 (01:04→17:21)
[2016-07-15] MEDS: IPRATROPIUM/ALBUTEROL 0.5-2.5 MG/3 ML AMPUL NEB SCH ×4 (02:10→20:46)
[2016-07-15] MEDS: PIPERACILLIN SODIUM/TAZOBACTAM 4.5 GM in NORMAL SALINE 100 ML IV SCH ×2 (02:35→08:25)
[2016-07-15 05:33] LABS: ABSOLUTE LYMPHOCYTES (AUTO) 0.4 10^3/uL (0.5-4.7); ABSOLUTE MONOCYTES (AUTO) 0.1 10^3/uL (0.1-1.4); ABSOLUTE NEUT (AUTO) 7.4 10^3/uL (1.7-8.2); BASOPHILS % (AUTO) 0.1 % (0-2); HEMATOCRIT 33.5 % (36.0-47.0); HEMOGLOBIN 10.8 g/dL (12.0-15.5); HGB HCT DIFFERENCE -1.1; LYMPHOCYTES % (AUTO) 5.4 % (13-45); MEAN CORPUSCULAR HEMOGLOBIN 25.8 pg (27.0-33.4); MEAN CORPUSCULAR HGB CONC 32.3 g/dL (32.0-36.0); MEAN CORPUSCULAR VOLUME 80 fl (80-97); MONOCYTES % (AUTO) 1.7 % (3-13); RED BLOOD COUNT 4.19 10^6/uL (3.72-5.28); RED CELL DISTRIBUTION WIDTH 16.4 % (11.5-14.0); SEGMENTED NEUTROPHILS % (AUTO) 92.8 % (42-78)
[2016-07-15 05:45] LABS: ANION GAP 9 (5-19); BLOOD UREA NITROGEN 23 mg/dL (7-20); CALCIUM 8.9 mg/dL (8.4-10.2); CARBON DIOXIDE 29 mmol/L (22-30); CHLORIDE 99 mmol/L (98-107); CREATININE RESULT 0.55 mg/dL (0.52-1.25); GLUCOSE 154 mg/dL (75-110); POTASSIUM 4.6 mmol/L (3.6-5.0); SODIUM 137.1 mmol/L (137-145)
[2016-07-15] MEDS: LORAZEPAM INJ 2 MG/1 ML VIAL IV SCH ×2 (06:53→17:22)
[2016-07-15] MEDS: POTASSI CL 40 MEQ/D5-1/2NS 1L 1,000 ML IV PRN (06:59)
[2016-07-15] MEDS: FUROSEMIDE INJ/PF 20 MG/2 ML SDV IV SCH (09:28)
[2016-07-15] MEDS: FAMOTIDINE INJ/PF 20 MG/2 ML SDV IV SCH ×2 (09:28→22:32)
[2016-07-15] MEDS: LACTOBACILLUS ACIDOPHILUS 250 MG TAB PO SCH ×2 (09:28→17:21)
[2016-07-15] MEDS: LISINOPRIL 10 MG TABLET PO SCH (09:29)
[2016-07-15] MEDS: CLONIDINE HCL 0.2 MG TABLET PO SCH ×2 (09:29→22:31)
[2016-07-15] MEDS: CARVEDILOL 6.25 MG TABLET PO SCH ×2 (09:29→22:31)
[2016-07-15] MEDS: ASPIRIN 81 MG TABLET, ENT COATED PO SCH (09:29)
[2016-07-15] MEDS: CLOPIDOGREL BISULFATE 75 MG TABLET PO SCH (09:29)
[2016-07-15] MEDS: HEPARIN SOD (PORCINE) 5,000 UNIT/ML 1 ML SYRINGE SUBCUT SCH ×2 (09:30→22:32)
[2016-07-15] MEDS: SERTRALINE HCL 50 MG TABLET PO SCH (09:30)
[2016-07-15] MEDS ORDERED: CEFPODOXIME 200 MG TABLET PO ONE (13:30)
--- NOTE | 2016-07-15 15:23 | PDOC PROGRESS REPORT ---
Subjective Progress Note for:: 07/15/16 Subjective:: feels better no complaints Physical Exam Vital Signs: Temp Pulse Resp BP Pulse Ox 97.5 F 77 14 111/60 94 07/15/16 11:49 07/15/16 14:00 07/15/16 13:21 07/15/16 11:49 07/15/16 13:21 Intake & Output 07/14/16 07/15/16 07/16/16 00:59 00:59 00:59 Intake Total 3562 2535 1653 Output Total 2720 1950 800 Balance 842 585 853 Weight 37.8 kg 36.1 kg 41.2 kg General appearance: PRESENT: no acute distress, thin Head exam: PRESENT: atraumatic, normocephalic Eye exam: PRESENT: conjunctiva pink, EOMI, PERRLA. ABSENT: scleral icterus Neck exam: ABSENT: carotid bruit, JVD, lymphadenopathy, thyromegaly Respiratory exam: PRESENT: decreased breath sounds, wheezes Cardiovascular exam: PRESENT: RRR. ABSENT: diastolic murmur, rubs, systolic murmur Pulses: PRESENT: normal dorsalis pedis pul GI/Abdominal exam: PRESENT: normal bowel sounds, soft. ABSENT: distended, guarding, mass, organolmegaly, rebound, tenderness Extremities exam: PRESENT: full ROM. ABSENT: calf tenderness, clubbing, pedal edema Neurological exam: PRESENT: alert, awake, oriented to person, oriented to place , oriented to time, oriented to situation, CN II-XII grossly intact. ABSENT: motor sensory deficit Results Laboratory Results: 07/15/16 04:33 07/15/16 04:33 07/15/16 07/15/16 04:33 04:33 WBC 8.0 RBC 4.19 Hgb 10.8 L Hct 33.5 L MCV 80 MCH 25.8 L MCHC 32.3 RDW 16.4 H Plt Count 161 Seg Neutrophils % 92.8 H Lymphocytes % 5.4 L Monocytes % 1.7 L Eosinophils % 0.0 Basophils % 0.1 Absolute Neutrophils 7.4 Absolute Lymphocytes 0.4 L Absolute Monocytes 0.1 Absolute Eosinophils 0.0 Absolute Basophils 0.0 Sodium 137.1 Potassium 4.6 Chloride 99 Carbon Dioxide 29 Anion Gap 9 BUN 23 H Creatinine 0.55 Est GFR ( Amer) > 60 Est GFR (Non-Af Amer) > 60 Glucose 154 H Calcium 8.9 Impressions: KUB X-Ray 07/09/16 00:00 IMPRESSION: NASOGASTRIC TUBE DESCRIBED. FURTHER ADVANCEMENT MAY BE NECESSARY. NO RADIOGRAPHIC EVIDENCE FOR ACUTE ABDOMINAL DISEASE. Chest X-Ray 07/15/16 06:00 IMPRESSION: Stable chest status post extubation. No pneumothorax. Assessment & Plan - Diagnosis (1) COPD exacerbation Is this a current diagnosis for this admission?: Yes (2) Anemia Qualifiers: Anemia type: unspecified type Qualified Code(s): D64.9 - Anemia, unspecified Is this a current diagnosis for this admission?: Yes (3) Dependence on continuous supplemental oxygen Is this a current diagnosis for this admission?: Yes (4) Tobacco dependency Is this a current diagnosis for this admission?: Yes - Time Time Spent with patient: continue present management discharge in am if stable Time Spent with patient: 25-34 minutes
[2016-07-15] MEDS: FLUCONAZOLE 100 MG TABLET PO SCH (17:21)
[2016-07-15] MEDS: ATORVASTATIN CALCIUM 40 MG TABLET PO SCH (22:31)
[2016-07-15] MEDS: CEFPODOXIME 200 MG TABLET PO SCH (22:35)
[2016-07-16] MEDS: METHYLPREDNISOLONE INJ 40 MG/1 ML SDV IV SCH ×2 (01:36→10:43)
[2016-07-16] MEDS: IPRATROPIUM/ALBUTEROL 0.5-2.5 MG/3 ML AMPUL NEB SCH ×3 (01:54→14:28)
[2016-07-16] MEDS: LORAZEPAM INJ 2 MG/1 ML VIAL IV SCH (05:36)
[2016-07-16] MEDS: POTASSI CL 40 MEQ/D5-1/2NS 1L 1,000 ML IV PRN (05:37)
[2016-07-16] MEDS: SERTRALINE HCL 50 MG TABLET PO SCH (10:44)
[2016-07-16] MEDS: FUROSEMIDE INJ/PF 20 MG/2 ML SDV IV SCH (10:44)
[2016-07-16] MEDS: FAMOTIDINE INJ/PF 20 MG/2 ML SDV IV SCH (10:44)
[2016-07-16] MEDS: LISINOPRIL 10 MG TABLET PO SCH (10:44)
[2016-07-16] MEDS: CARVEDILOL 6.25 MG TABLET PO SCH (10:45)
[2016-07-16] MEDS: ASPIRIN 81 MG TABLET, ENT COATED PO SCH (10:45)
[2016-07-16] MEDS: CLOPIDOGREL BISULFATE 75 MG TABLET PO SCH (10:45)
[2016-07-16] MEDS: CLONIDINE HCL 0.2 MG TABLET PO SCH (10:46)
[2016-07-16] MEDS: LACTOBACILLUS ACIDOPHILUS 250 MG TAB PO SCH (10:46)
[2016-07-16] MEDS: CEFPODOXIME 200 MG TABLET PO SCH (10:47)
[2016-07-16] MEDS: HEPARIN SOD (PORCINE) 5,000 UNIT/ML 1 ML SYRINGE SUBCUT SCH (10:48)
[2016-07-16] MEDS: OXYCODONE HCL IR 5 MG TABLET PO PRN (11:11)
[2016-07-16 13:40] VITALS: BP 140/44
--- NOTE | 2016-07-16 16:27 | PDOC DISCHARGE SUMMARY ---
General - Admit/Disc Date/PCP Admission Date/Primary Care Provider: 07/09/16 07:43 HAILEE ARNDT Discharge Date: 07/16/16 - Discharge Diagnosis (1) COPD exacerbation Is this a current diagnosis for this admission?: Yes (2) Anemia Is this a current diagnosis for this admission?: Yes (3) Dependence on continuous supplemental oxygen Is this a current diagnosis for this admission?: Yes (4) Tobacco dependency Is this a current diagnosis for this admission?: Yes - Additional Information Resuscitation Status: Full Code Discharge Diet: Cardiac Discharge Activity: Activity As Tolerated Home Medications: Albuterol Sulfate [Proair HFA] 2 puff IH Q4HP PRN 07/09/16 Atorvastatin Calcium [Lipitor 40 mg Tablet] 40 mg PO WSUPPER 07/09/16 Budesonide/Formoterol Fumarate [Symbicort HFA 160-4.5 mcg Inhaler 6 gm] 2 puff IH BID 07/09/16 Carvedilol [Coreg 6.25 mg Tablet] 6.25 mg PO Q12 07/09/16 Clonidine HCl [Catapres 0.2 mg Tablet] 0.2 mg PO Q12 07/09/16 Clopidogrel Bisulfate [Plavix 75 mg Tablet] 75 mg PO DAILY 07/09/16 Fluticasone Propionate [Flonase Nasal [place] 50 Mcg/[place] 16 gm] 1 spray NASL DAILY 07/09/16 Ipratropium/Albuterol Sulfate [Iprat-Albut 0.5-3(2.5) mg/3 ml] 3 ml NEB Q6HP PRN 07/09/16 Isosorbide Mononitrate [Isosorbide Mononitrate ER] 30 mg PO DAILY 07/09/16 Lisinopril [Prinivil 5 mg Tablet] 5 mg PO Q12 07/09/16 Lorazepam [Ativan 0.5 mg Tablet] 0.5 mg PO BIDP PRN 07/09/16 Megestrol Acetate [Megace] 15.6 ml PO DAILY 07/09/16 Methadone HCl 5 mg PO BIDP PRN 07/09/16 Nitroglycerin [Nitrostat] 0.4 mg SL Q5MP PRN 07/09/16 Omeprazole 20 mg PO DAILY 07/09/16 Sertraline HCl [Zoloft 50 mg Tablet] 50 mg PO DAILY 07/09/16 Tiotropium [place] [Spiriva Handihaler 5 Cap/Kit (18 Mcg/Cap)] 1 puff IH DAILY 07/09/16 Cefpodoxime Proxetil [Vantin 200 mg Tablet] 1 tab PO Q12 #10 tab 07/16/16 Prednisone 20 mg PO ASDIR PRN #20 tablet 07/16/16 History of Present Illness History of Present Illness: CHARITY RAYMOND is a 56 year old female Physical Exam Vital Signs: Temp Pulse Resp BP Pulse Ox 98.3 F 72 16 140/44 H 94 07/16/16 14:46 07/16/16 14:46 07/16/16 14:46 07/16/16 14:46 07/16/16 14:46 Intake & Output 07/15/16 07/16/16 07/17/16 00:59 00:59 00:59 Intake Total 2535 2977 952 Output Total 1950 800 500 Balance 585 2177 452 Weight 36.1 kg 41.2 kg 42.1 kg Results Laboratory Results: 07/15/16 04:33 07/15/16 04:33 07/16/16 04:23 Triglycerides 118 07/10/16 16:30 Blood Blood Culture - Final NO GROWTH IN 5 DAYS 07/10/16 16:50 Blood Blood Culture - Final NO GROWTH IN 5 DAYS Impressions: KUB X-Ray 07/09/16 00:00 IMPRESSION: NASOGASTRIC TUBE DESCRIBED. FURTHER ADVANCEMENT MAY BE NECESSARY. NO RADIOGRAPHIC EVIDENCE FOR ACUTE ABDOMINAL DISEASE. Chest X-Ray 07/15/16 06:00 IMPRESSION: Stable chest status post extubation. No pneumothorax.
--- NOTE | 2016-07-16 16:31 | PDOC DISCHARGE SUMMARY ---
General - Admit/Disc Date/PCP Admission Date/Primary Care Provider: 07/09/16 07:43 HAILEE ARNDT Discharge Date: 07/16/16 - Discharge Diagnosis (1) COPD exacerbation Is this a current diagnosis for this admission?: Yes (2) Anemia Is this a current diagnosis for this admission?: Yes (3) Dependence on continuous supplemental oxygen Is this a current diagnosis for this admission?: Yes (4) Tobacco dependency Is this a current diagnosis for this admission?: Yes - Additional Information Resuscitation Status: Full Code Discharge Diet: Cardiac Discharge Activity: Activity As Tolerated Home Medications: Albuterol Sulfate [Proair HFA] 2 puff IH Q4HP PRN 07/09/16 Atorvastatin Calcium [Lipitor 40 mg Tablet] 40 mg PO WSUPPER 07/09/16 Budesonide/Formoterol Fumarate [Symbicort HFA 160-4.5 mcg Inhaler 6 gm] 2 puff IH BID 07/09/16 Carvedilol [Coreg 6.25 mg Tablet] 6.25 mg PO Q12 07/09/16 Clonidine HCl [Catapres 0.2 mg Tablet] 0.2 mg PO Q12 07/09/16 Clopidogrel Bisulfate [Plavix 75 mg Tablet] 75 mg PO DAILY 07/09/16 Fluticasone Propionate [Flonase Nasal [place] 50 Mcg/[place] 16 gm] 1 spray NASL DAILY 07/09/16 Ipratropium/Albuterol Sulfate [Iprat-Albut 0.5-3(2.5) mg/3 ml] 3 ml NEB Q6HP PRN 07/09/16 Isosorbide Mononitrate [Isosorbide Mononitrate ER] 30 mg PO DAILY 07/09/16 Lisinopril [Prinivil 5 mg Tablet] 5 mg PO Q12 07/09/16 Lorazepam [Ativan 0.5 mg Tablet] 0.5 mg PO BIDP PRN 07/09/16 Megestrol Acetate [Megace] 15.6 ml PO DAILY 07/09/16 Methadone HCl 5 mg PO BIDP PRN 07/09/16 Nitroglycerin [Nitrostat] 0.4 mg SL Q5MP PRN 07/09/16 Omeprazole 20 mg PO DAILY 07/09/16 Sertraline HCl [Zoloft 50 mg Tablet] 50 mg PO DAILY 07/09/16 Tiotropium [place] [Spiriva Handihaler 5 Cap/Kit (18 Mcg/Cap)] 1 puff IH DAILY 07/09/16 Cefpodoxime Proxetil [Vantin 200 mg Tablet] 1 tab PO Q12 #10 tab 07/16/16 Prednisone 20 mg PO ASDIR PRN #20 tablet 07/16/16 History of Present Illness Patient complains of: Shortness of breath History of Present Illness: CHARITY RAYMOND is a 56 year old female with underlying 24/7 2 L per nasal cannula home O2 dependent COPD, ongoing tobacco use, 1/2-1 pack of cigarettes per day, along with underlying coronary artery disease, having suffered 3-4 myocardial infarctions,, last episode November of last year, with heart catheterization at that time revealing no further intervention necessary, status post previous coronary arterial bypass graft, along with hyperlipidemia, who presents to the emergency room via EMS for evaluation and treatment of above complaint. Patient has been discussed with emergency room physician who evaluated the patient. Patient is intubated and sedated and is able to provide no history whatsoever in terms of acute or chronic events, review of systems, personal habits, family history, etc. Sister, who is patient's surrogate health care power of adaptive physical education teacher, is present and is quite informative and helpful no old records available for review.. Sister states the patient is "sick all the time." Was last on antibiotics 2 weeks ago for respiratory tract infection. Uncertain exactly which medication. Has not been hospitalized in the last 3 months, but has gone to the emergency room more than one time during that time span.. No specific sick contacts. Up- to-date on flu and probably pneumonia vaccinations. No prior intubation. Early evening of the , patient began having increasing respiratory distress and per her her usual routine, she took half milligram Ativan at that time. She suddenly awoke in the kosher dietary service manager hours of admission in significant respiratory distress with wheezing. EMS arrived approximately 1:30 AM after patient called. Bronchodilators had been tried at home with no success. EMS tried more bronchodilators, but patient became apneic and required intubation in the field. Hospital Course Hospital Course: Patient was admitted to [facility] with a COPD exacerbation , acute hypoxemic respiratory failure She was intubated on admission and placed on mechanical ventilation A right upper lobe pneumonia was visualized on the chest x-ray Patient was treated with IV antibiotics and steroids nebs Successfully extubated and had an uneventful course afterwards Sputum culture grew Serratia sensitive to ceftriaxone Patient was discharged on Vantin by mouth Disability Patient was evaluated by physical therapy prior to discharge and could ambulate with a walker Patient was discharged with services Physical Exam Vital Signs: Temp Pulse Resp BP Pulse Ox 98.3 F 72 16 140/44 H 94 07/16/16 14:46 07/16/16 14:46 07/16/16 14:46 07/16/16 14:46 07/16/16 14:46 Intake & Output 07/15/16 07/16/16 07/17/16 00:59 00:59 00:59 Intake Total 2535 2977 952 Output Total 1950 800 500 Balance 585 2177 452 Weight 36.1 kg 41.2 kg 42.1 kg General appearance: PRESENT: no acute distress, thin Head exam: PRESENT: atraumatic, normocephalic Eye exam: PRESENT: conjunctiva pink, EOMI, PERRLA. ABSENT: scleral icterus Respiratory exam: PRESENT: decreased breath sounds. ABSENT: rales, rhonchi, wheezes Cardiovascular exam: PRESENT: RRR. ABSENT: diastolic murmur, rubs, systolic murmur GI/Abdominal exam: PRESENT: normal bowel sounds, soft. ABSENT: distended, guarding, mass, organolmegaly, rebound, tenderness Extremities exam: PRESENT: full ROM. ABSENT: calf tenderness, clubbing, pedal edema Neurological exam: PRESENT: alert, awake, oriented to person, oriented to place , oriented to time, oriented to situation, CN II-XII grossly intact. ABSENT: motor sensory deficit Results Laboratory Results: 07/15/16 04:33 07/15/16 04:33 07/16/16 04:23 Triglycerides 118 07/10/16 16:30 Blood Blood Culture - Final NO GROWTH IN 5 DAYS 07/10/16 16:50 Blood Blood Culture - Final NO GROWTH IN 5 DAYS Impressions: KUB X-Ray 07/09/16 00:00 IMPRESSION: NASOGASTRIC TUBE DESCRIBED. FURTHER ADVANCEMENT MAY BE NECESSARY. NO RADIOGRAPHIC EVIDENCE FOR ACUTE ABDOMINAL DISEASE. Chest X-Ray 07/15/16 06:00 IMPRESSION: Stable chest status post extubation. No pneumothorax. Plan Discharge Plan: Patient was discharged home with services to continue home O2 Follow-up with primary care physician in a week
== END 2016-07-16 15:57 | disposition home or self-care (01) | DRG 871 ==
LOC: ER 02:55 → EH 05:12 → UNDOADMIN 05:12 → EH 07:43 → ICU 07-11 10:41 → 3N 07-14 16:00
PROVIDERS: ADMIT Family Medicine; ATTEND Family Medicine
PROC: 0BH17EZ Insertion of Endotracheal Airway into Trachea, Via Natural or Artificial Opening (ICD-10-PCS; principal; 2016-07-09)
PROC: 5A1945Z Respiratory Ventilation, 24-96 Consecutive Hours (ICD-10-PCS; 2016-07-09)
DX: A41.9 Sepsis, unspecified organism (principal); J15.6 Pneumonia due to other Gram-negative bacteria; B37.1 Pulmonary candidiasis; G93.40 Encephalopathy, unspecified; J96.22 Acute and chronic respiratory failure with hypercapnia; J96.21 Acute and chronic respiratory failure with hypoxia; E44.0 Moderate protein-calorie malnutrition; Z68.1 Body mass index [BMI] 19.9 or less, adult; J44.1 Chronic obstructive pulmonary disease with (acute) exacerbation; E87.0 Hyperosmolality and hypernatremia; Z99.81 Dependence on supplemental oxygen; R91.1 Solitary pulmonary nodule; E87.6 Hypokalemia; D64.9 Anemia, unspecified; I25.10 Atherosclerotic heart disease of native coronary artery without angina pectoris; I10 Essential (primary) hypertension; E78.5 Hyperlipidemia, unspecified; F32.9 Major depressive disorder, single episode, unspecified; F41.1 Generalized anxiety disorder; Z79.82 Long term (current) use of aspirin; Z79.899 Other long term (current) drug therapy; I25.2 Old myocardial infarction; Z95.1 Presence of aortocoronary bypass graft; F17.210 Nicotine dependence, cigarettes, uncomplicated; Z90.49 Acquired absence of other specified parts of digestive tract; Z90.710 Acquired absence of both cervix and uterus; Z88.8 Allergy status to other drugs, medicaments and biological substances; Z91.010 Allergy to peanuts
CPT/HCPCS: 36415; 71010; 74000; 80048; 80053; 81001; 82550; 82553; 82803; 82962; 83735; 84478; 84484; 85025; 85610; 85730; 87040; 87070; 87077; 87086; 87186; 87205; 87804; 93005; 93010; 94002; 94003; 94640; 94799; 96360; 99291; G8978-GP; G8979-GP; J0456; J0696; J1450; J1644; J1815; J1940; J1956; J2060; J2543; J2704; J2920; J3475; J3480; J3490; J7030; J7620; S0028